=== PATIENT | male | born 1965 | race Caucasian/White ===

== ENCOUNTER 2016-12-18 13:55 | Outpatient (CLI) | payer OTHER | END 2016-12-18 13:56 | disposition home or self-care (01) | DX: R30.0 Dysuria (principal) ==

== ENCOUNTER 2017-12-06 07:41 | Outpatient (CLI) | payer OTHER ==
[2017-12-06 10:43] LABS: BASOPHILS % (AUTO) 0.4 %; EOSINOPHILS # (AUTO) 0.3 10^3/uL (0.0-0.7); EOSINOPHILS % (AUTO) 4.2 %; HGB - HEMOGLOBIN 15.9 g/dL (14.0-18.0); LYMPHOCYTES # (AUTO) 2.1 10^3/uL (1.5-3.5); MEAN CORPUSCULAR HEMOGLOBIN 29.4 pg (27.0-31.0); MEAN CORPUSCULAR HGB CONC 33.6 g/dL (32.0-36.0); MEAN CORPUSCULAR VOLUME 87.5 fL (80.0-94.0); MEAN PLATELET VOLUME 8.1 fL (7.4-11.4); MONOCYTES # (AUTO) 0.5 10^3/uL (0.0-1.0); MONOCYTES % (AUTO) 8.1 %; NEUTROPHILS # (AUTO) 3.2 10^3/uL (1.5-6.6); NEUTROPHILS % (AUTO) 53.3 %; PLT - PLATELET COUNT 213 10^3/uL (130-450); RED CELL DISTRIBUTION WIDTH 13.5 % (12.0-15.0)
[2017-12-06 10:54] LABS: ALBUMIN 4.2 g/dL (3.2-5.5); ALBUMIN/GLOBULIN RATIO 1.2 (1.0-2.2); ALKALINE PHOSPHATASE 86 IU/L (42-121); ALT ALANINE AMINOTRANSFERASE 32 IU/L (10-60); AST ASPARTATE AMINOTRANSFERASE 33 IU/L (10-42); BILIRUBIN,TOTAL 0.5 mg/dL (0.2-1.0); BUN - BLOOD UREA NITROGEN 14 mg/dL (6-20); CALCIUM 9.2 mg/dL (8.5-10.3); CARBON DIOXIDE - CO2 26 mmol/L (21-32); CHLORIDE 101 mmol/L (101-111); CREATININE 0.6 mg/dL (0.6-1.2); GFR - MDRD 143 (>89); GLUCOSE 115 mg/dL (70-100); SODIUM 137 mmol/L (135-145); TOTAL PROTEIN 7.7 g/dL (6.7-8.2)
[2017-12-07 13:12] LABS: HIV AG/AB 4TH GEN NON-REACTIVE (NON-REACTIVE)
[2017-12-07 15:27] LABS: HEPATITIS C ANTIBODY NON-REACTIVE (NON-REACTIVE)
== END 2017-12-06 07:42 | disposition home or self-care (01) ==
LOC: LAB.F 07:41
PROVIDERS: ATTEND Nurse Practitioner Family
DX: G44.89 Other headache syndrome (principal); Z72.51 High risk heterosexual behavior
CPT/HCPCS: 36415; 80053; 81599; 84443; 85025; 85651; 86803; 87389; 87491; 87591

== ENCOUNTER 2019-02-04 11:24 | Emergency (ER) | payer OTHER ==
[2019-02-04 11:47] LABS: BASOPHILS # (AUTO) 0.1 10^3/uL (0.0-0.1); BASOPHILS % (AUTO) 0.6 %; EOSINOPHILS # (AUTO) 0.1 10^3/uL (0.0-0.7); EOSINOPHILS % (AUTO) 0.7 %; LYMPHOCYTES # (AUTO) 1.6 10^3/uL (1.5-3.5); LYMPHOCYTES % (AUTO) 16.7 %; MEAN CORPUSCULAR HEMOGLOBIN 29.8 pg (27.0-31.0); MEAN CORPUSCULAR HGB CONC 34.2 g/dL (32.0-36.0); MEAN CORPUSCULAR VOLUME 87.3 fL (80.0-94.0); MEAN PLATELET VOLUME 6.9 fL (7.4-11.4); MONOCYTES # (AUTO) 0.6 10^3/uL (0.0-1.0); NEUTROPHILS # (AUTO) 7.1 10^3/uL (1.5-6.6); PLT - PLATELET COUNT 277 10^3/uL (130-450); RED BLOOD COUNT 5.36 10^6/uL (4.70-6.10); RED CELL DISTRIBUTION WIDTH 13.2 % (12.0-15.0); WHITE BLOOD COUNT 9.4 x10^3/uL (4.8-10.8)
--- NOTE | 2019-02-04 11:54 | ED Physician Documentation ---
PD HPI CHEST PAIN - Stated complaint Stated Complaint: CHEST PAIN - Chief complaint Chief Complaint: Cardiac - History obtained from History obtained from: Patient - History of Present Illness Timing - onset: How many days ago (2) Timing - onset during: Rest Timing - duration: Days (2) Timing - details: Gradual onset Pain level max: 8 Pain level now: 6 Quality: Sharp, Pain Location: Left chest Radiation: No: Jaw, Neck, Back, Abdominal, Left upper extremity, Right upper extremity Improved by: Other (nothing) Worsened by: Inspiration, Palpation Associated symptoms: Cough (states has a chronic cough, unchanged, was recently ill.). No: Shortness of air, Diaphoresis, Nausea, Vomiting, Feeling faint / dizzy, General Weakness, Palpitations Recently seen: Not recently seen Review of Systems Ten Systems: 10 systems reviewed and negative Constitutional: denies: Fever, Chills GI: denies: Vomiting, Diarrhea Skin: denies: Rash Musculoskeletal: denies: Neck pain, Back pain Neurologic: denies: Headache PD PAST MEDICAL HISTORY - Past Medical History Past Medical History: Yes Cardiovascular: None Respiratory: Other Endocrine/Autoimmune:  GI: Other : None HEENT: None Psych:  Musculoskeletal: None - Past Surgical History Past Surgical History: Yes Ortho: Knee replacement - Present Medications Home Medications: Ambulatory Orders Medication Instructions Recorded Confirmed Ibuprofen [Motrin] 800 mg PO Q8H PRN #30 tablet 02/04/19 - Allergies Allergies/Adverse Reactions: Allergies Allergy/AdvReac Type Severity Reaction Status Date / Time Opioids - Morphine Analogues AdvReac Itching Verified 02/04/19 11:40 - Social History Does the pt smoke?: Yes PD ED PE NORMAL - Vitals Vital signs reviewed: Yes - General General: Alert and oriented X 3, No acute distress - HEENT HEENT: Moist mucous membranes - Neck Neck: Supple, no meningeal sign - Cardiac Cardiac: RRR, No murmur, Strong equal pulses - Respiratory Respiratory: No respiratory distress, Clear bilaterally - Abdomen Abdomen: Soft, Non tender, Non distended - Derm Derm: Warm and dry - Extremities Extremities: No edema, No calf tenderness / cord - Neuro Neuro: Alert and oriented X 3 - Psych Psych: Normal mood, Normal affect Results - Vitals Vitals: Vital Signs - 24 hr 02/04/19 02/04/19 02/04/19 11:36 11:57 12:06 Temperature 37.8 C H Heart Rate 69 67 69 Respiratory 18 14 15 Rate Blood Pressure 140/98 H 134/94 H 125/82 H O2 Saturation 97 98 95 02/04/19 02/04/19 02/04/19 12:28 13:00 13:34 Temperature Heart Rate 68 65 60 Respiratory 13 16 16 Rate Blood Pressure 112/66 121/84 H 129/95 H O2 Saturation 97 98 97 02/04/19 02/04/19 13:59 14:12 Temperature 37.0 C Heart Rate 69 67 Respiratory 16 16 Rate Blood Pressure 119/78 123/85 H O2 Saturation 97 98 Oxygen O2 Source Room air - EKG (time done) 1132 Rate: Rate (enter#) (74) Rhythm: NSR [place]: Anterior hemiblock (LAFB) Intervals: RBBB (incomplete) Ischemia: Other (J point elevation, tall t waves. ) Compare to prior EKG: Old EKG unavailable - Labs Labs: Laboratory Tests 02/04/19 02/04/19 02/04/19 11:40 11:40 11:40 WBC 9.4 RBC 5.36 Hgb 16.0 Hct 46.8 MCV 87.3 MCH 29.8 MCHC 34.2 RDW 13.2 Plt Count 277 MPV 6.9 L Neut # (Auto) 7.1 H Lymph # (Auto) 1.6 [place] # (Auto) 0.6 Eos # (Auto) 0.1 Baso # (Auto) 0.1 Absolute Nucleated RBC 0.01 Nucleated RBC % 0.1 Sodium 137 Potassium 4.4 Chloride 100 L Carbon Dioxide 27 Anion Gap 10.0 BUN 16 Creatinine 0.7 Estimated GFR (MDRD) 119 Glucose 100 Calcium 9.1 Total Bilirubin 0.6 AST 20 ALT 16 Alkaline Phosphatase 94 Troponin I < 0.04 Total Protein 8.2 Albumin 4.0 Globulin 4.2 Albumin/Globulin Ratio 1.0 Lipase 33 02/04/19 13:27 WBC RBC Hgb Hct MCV MCH MCHC RDW Plt Count MPV Neut # (Auto) Lymph # (Auto) [place] # (Auto) Eos # (Auto) Baso # (Auto) Absolute Nucleated RBC Nucleated RBC % Sodium Potassium Chloride Carbon Dioxide Anion Gap BUN Creatinine Estimated GFR (MDRD) Glucose Calcium Total Bilirubin AST ALT Alkaline Phosphatase Troponin I < 0.04 Total Protein Albumin Globulin Albumin/Globulin Ratio Lipase - Rads (name of study) cxr Radiology: Prelim report reviewed, EMP read contemporaneously, See rad report (no acute disease) PD MEDICAL DECISION MAKING - ED course Complexity details: reviewed results, re-evaluated patient, considered differential, d/w patient ED course: 53-year-old male with left-sided pleuritic chest pain following a viral upper respiratory infection a few days ago. This been ongoing for the past 2 days. No acute ischemic changes on EKG. Pain improved with Toradol. Negative troponin x2. Appears to be consistent with pleurisy. No evidence of pulmonary embolus, acute coronary syndrome. We will continue supportive care and follow- up with his doctor. Patient counseled regarding signs and symptoms for which I believe and urgent re-evaluation would be necessary. Patient with good understanding of and agreement to plan and is comfortable going home at this time This document was made in part using voice recognition software. While efforts are made to proofread this document, sound alike and grammatical errors may occur. Patient took aspirin prior to arrival Departure - Departure Disposition: 01 Home, Self Care Clinical Impression: Pleurisy Chest pain Qualifiers: Chest pain type: unspecified Qualified Code(s): R07.9 - Chest pain, unspecified Condition: Good Instructions: ED Chest Pain Atypical Unkn Cause, ED Chest Pain Pleurisy Follow-Up: Roya Varela ARNP [Primary Care Provider] - Within 1 week Prescriptions: Ibuprofen [Motrin] 800 mg PO Q8H PRN #30 tablet PRN Reason: PAIN &/OR FEVER Comments: Return if you worsen. Your heart testing is normal today. You should follow-up with your doctor for a cardiac stress test. you appear to have inflammation in the lining between your lungs and your chest wall. This should improve over the next week. Discharge Date/Time: 02/04/19 14:13
[2019-02-04] MEDS: NITROGLYCERIN SL 0.4 MG TABLET SL STA ×2 (11:56→12:06)
[2019-02-04 12:01] LABS: BILIRUBIN,TOTAL 0.6 mg/dL (0.2-1.0); CALCIUM 9.1 mg/dL (8.5-10.3); CREATININE 0.7 mg/dL (0.6-1.2); TOTAL PROTEIN 8.2 g/dL (6.7-8.2)
[2019-02-04] MEDS ORDERED: KETOROLAC 30 MG/ML VIAL IVP STA (12:14)
--- NOTE | 2019-02-04 12:30 | XRAY Report ---
Reason: Chest Pain Procedure Date: 02/04/2019 Accession Number: [id number] / [id number] Procedure: XR - Chest 1 View X-Ray CPT Code: 09079 FULL RESULT: EXAM: CHEST RADIOGRAPHY EXAM DATE: 02/04/2019 11:47 AM. CLINICAL HISTORY: Chest Pain. COMPARISON: None. TECHNIQUE: 1 view. FINDINGS: Lungs/Pleura: No focal opacities evident. No pleural effusion. No pneumothorax. Normal volumes. Bronchial wall thickening noted. Mediastinum: Within exam limitations, the cardiomediastinal contour is normal. Other: None. IMPRESSION: 1. No acute pulmonary process. RADIA
[2019-02-04 14:13] VITALS: BP 123/85
== END 2019-02-04 14:13 | disposition home or self-care (01) ==
LOC: ED 11:24
DX: R09.1 Pleurisy (principal); R07.9 Chest pain, unspecified; I45.2 Bifascicular block; Z96.659 Presence of unspecified artificial knee joint
CPT/HCPCS: 36415; 71045; 80053; 83690; 84484; 85025; 93005; 96374; 99283; 99284; A9270

== ENCOUNTER 2019-11-09 18:43 | Day surgery (SDC) | payer OTHER ==
[~2019-11-09 18:43] MED LIST: ACETAMINOPHEN 325 MG TABLET PO PRN; IBUPROFEN 600 MG TABLET PO PRN; ONDANSETRON 4 MG/2 ML VIAL IVP PRN; oxyCODONE 5 MG TABLET PO PRN
[2019-11-09] MEDS ORDERED: diphenhydrAMINE INJ 50 MG/ML VIAL IVP STA (19:06)
[2019-11-09] MEDS ORDERED: HYDROmorphone 1 MG/ML CARPUJECT IVP STA ×2 (19:06→19:57)
--- NOTE | 2019-11-09 19:09 | ED Physician Documentation ---
PD HPI ABD PAIN - Stated complaint Stated Complaint: R ABD PAIN - Chief complaint Chief Complaint: Abd Pain - History obtained from History obtained from: Patient - History of Present Illness Timing - onset: How many hours ago (2) Timing - duration: Hours (2) Timing - details: Abrupt onset Pain level max: 9 Pain level now: 9 Quality: Aching, Pain Location: Other (R inguinal hernia, pain, unable to reduce) Radiation: No: Chest, , Lower back, Left flank, Left shoulder, Right flank, Right shoulder, Upper back Improved by: Laying still Worsened by: Palpation Associated symptoms: No: Fever, Nausea, Vomiting, Hematemesis, Diarrhea, Constipation, Melena, Hematochezia, Dysuria Recently seen: Not recently seen Review of Systems Ten Systems: 10 systems reviewed and negative Constitutional: denies: Fever, Chills Ears: denies: Ear pain Nose: denies: Rhinorrhea / runny nose, Congestion Throat: denies: Sore throat Cardiac: denies: Chest pain / pressure Respiratory: denies: Cough GI: denies: Vomiting, Diarrhea Skin: denies: Rash Musculoskeletal: denies: Neck pain, Back pain Neurologic: denies: Headache PD PAST MEDICAL HISTORY - Past Medical History Cardiovascular: None Respiratory: Other Endocrine/Autoimmune:  GI: Other : None HEENT: None Psych:  Musculoskeletal: None - Past Surgical History Past Surgical History: Yes Ortho: Knee replacement - Present Medications Home Medications: Ambulatory Orders Medication Instructions Recorded Confirmed Ibuprofen [Motrin] 800 mg PO Q8H PRN #30 tablet 02/04/19 - Allergies Allergies/Adverse Reactions: Allergies Allergy/AdvReac Type Severity Reaction Status Date / Time Opioids - Morphine Analogues AdvReac Itching Verified 11/09/19 18:53 - Social History Does the pt smoke?: Yes PD ED PE NORMAL - Vitals Vital signs reviewed: Yes - General General: Alert and oriented X 3, No acute distress, Well developed/nourished - HEENT HEENT: Moist mucous membranes - Neck Neck: Supple, no meningeal sign - Cardiac Cardiac: RRR, Strong equal pulses - Respiratory Respiratory: No respiratory distress, Clear bilaterally - Abdomen Abdomen: Soft, Non tender, Non distended - Derm Derm: Warm and dry - Extremities Extremities: Other (incarcerated R inguinal/femoral hernia.) - Neuro Neuro: Alert and oriented X 3 - Psych Psych: Normal mood, Normal affect Results - Vitals Vitals: Vital Signs - 24 hr 11/09/19 11/09/19 18:53 20:56 Temperature 36.9 C 36.8 C Heart Rate 62 63 Respiratory 24 18 Rate Blood Pressure 143/119 H 132/87 H O2 Saturation 97 96 Oxygen O2 Source Room air - Labs Labs: Laboratory Tests 11/09/19 11/09/19 11/09/19 19:16 19:16 19:50 WBC 7.9 RBC 4.84 Hgb 14.6 Hct 43.2 MCV 89.3 MCH 30.2 MCHC 33.8 RDW 12.5 Plt Count 234 MPV 9.3 Neut # (Auto) 5.0 Lymph # (Auto) 2.1 [place] # (Auto) 0.6 Eos # (Auto) 0.2 Baso # (Auto) 0.0 Absolute Nucleated RBC 0.00 Nucleated RBC % 0.0 Sodium 139 Potassium 3.9 Chloride 104 Carbon Dioxide 25 Anion Gap 10.0 BUN 12 Creatinine 0.6 Estimated GFR (MDRD) 141 Glucose 95 Lactic Acid 0.9 Calcium 8.9 Total Bilirubin 1.0 AST 19 ALT 17 Alkaline Phosphatase 69 Total Protein 7.4 Albumin 4.3 Globulin 3.1 Albumin/Globulin Ratio 1.4 Lipase 27 PD MEDICAL DECISION MAKING - ED course Complexity details: reviewed results, re-evaluated patient, considered differential, d/w patient, d/w system consultant ED course: Incarcerated right inguinal hernia. Unable to reduce in the emergency department. Discussed the case with Dr. Das, general surgery on-call who will come and evaluate the patient. Dr. Das came to the emergency department, unable to reduce the hernia as well. Therefore he will take him to surgery. This document was made in part using voice recognition software. While efforts are made to proofread this document, sound alike and grammatical errors may occur. Departure - Departure Disposition: ED Transfer to [facility] Clinical Impression: Incarcerated right inguinal hernia Condition: Stable Discharge Date/Time: 11/09/19 21:46
[2019-11-09 19:34] LABS: BASOPHILS % (AUTO) 0.5 %; EOSINOPHILS # (AUTO) 0.2 10^3/uL (0.0-0.7); EOSINOPHILS % (AUTO) 2.3 %; HGB - HEMOGLOBIN 14.6 g/dL (14.0-18.0); LYMPHOCYTES # (AUTO) 2.1 10^3/uL (1.5-3.5); LYMPHOCYTES % (AUTO) 26.1 %; MEAN CORPUSCULAR HEMOGLOBIN 30.2 pg (27.0-31.0); MEAN CORPUSCULAR HGB CONC 33.8 g/dL (32.0-36.0); MEAN CORPUSCULAR VOLUME 89.3 fL (80.0-94.0); MEAN PLATELET VOLUME 9.3 fL (7.4-11.4); MONOCYTES # (AUTO) 0.6 10^3/uL (0.0-1.0); MONOCYTES % (AUTO) 8.1 %; NEUTROPHILS % (AUTO) 62.6 %; PLT - PLATELET COUNT 234 10^3/uL (130-450); RED BLOOD COUNT 4.84 10^6/uL (4.70-6.10); RED CELL DISTRIBUTION WIDTH 12.5 % (12.0-15.0); WHITE BLOOD COUNT 7.9 x10^3/uL (4.8-10.8)
[2019-11-09] MEDS ORDERED: LACTATED RINGERS 1,000 ML IV STA (19:40)
[2019-11-09 19:41] LABS: ALBUMIN 4.3 g/dL (3.2-5.5); ALBUMIN/GLOBULIN RATIO 1.4 (1.0-2.2); CALCIUM 8.9 mg/dL (8.5-10.3); CREATININE 0.6 mg/dL (0.6-1.2); TOTAL PROTEIN 7.4 g/dL (6.7-8.2)
--- NOTE | 2019-11-09 20:42 | CONSULTATION NOTE ---
Referring Provider Name of Referring Provider:: Dr. King Consult Date: 11/09/19 Chief Complaint - Chief Complaint Chief Complaint: right groin pain History of Present Illness - Admitted From Admitted From:: ER - History Obtained From Records Reviewed: yes History obtained from: pt Exam Limitations: none - History of Present Illness HPI Comment/Other: 54 yo male with sudden onset of a painful groin bulge at approx 1730 hours today. Hx similar sx intermittently over the past year, always reducible with pressure and recumbency, but unable to do so today so he presented to the ER. Has been diagnosed with a hernia by his PCP but has never gotten around to see a surgeon to have it repaired. 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 No hx chronic pulmonary, urinary or GI sx. +FH hernia in his father. No N/V or abdominal pain. Last meal at 1230 hrs today. In the ER the hernia was unable to be reduced and surgical consultation was requested. No sx on the left. History - Past Medical History Cardiovascular: reports: None Respiratory: reports: None, Other Neuro: reports: None Endocrine/Autoimmune: reports: None GI: reports: None, Other : reports: None HEENT: reports: None Psych: Musculoskeletal: reports: None Derm: reports: None MRSA Hx?: No - Past Surgical History General: reports: Other (hemorrhoid surgery) Ortho: reports: Knee replacement (right) - Family & Social History Family History Comment/Other: +Hernia in father Living arrangement: At home - Substance History Use: Uses substance without health or social issues: Tobacco Tobacco Details: Cigarettes - POLST Patient has POLST: No Meds/Allgy - Home Medications Home Medications: Ambulatory Orders Medication Instructions Recorded Confirmed Ibuprofen [Motrin] 800 mg PO Q8H PRN #30 tablet 02/04/19 - Allergies Allergies/Adverse Reactions: Allergies Allergy/AdvReac Type Severity Reaction Status Date / Time Opioids - Morphine Analogues AdvReac Itching Verified 11/09/19 18:53 Review of Systems - Respiratory Respiratory: reports: Cough - Gastrointestinal Gastrointestinal: reports: Abdominal pain (right groin pain, severe, constant). denies: Constipation, Diarrhea, Change in bowel habits, Rectal bleeding, Nausea, Vomiting - Genitourinary Genitourinary: denies: Dysuria - Hematologic/Lymphatic Hematologic/Lymphatic: denies: Blood clots, Bleeding tendencies - All Other Systems All Other Systems: reports: Reviewed and negative (or covered in HPI/PMH) Exam - Vital Signs Reviewed Vital Signs: Yes Vital Signs: Vital Signs x48h Temp Pulse Resp BP Pulse Ox 11/09/19 18:53 36.9 C 62 24 143/119 H 97 - Physical Exam General Appearance: positive: Alert, Moderate distress (c/o right groin pain) Eyes Bilateral: positive: Normal inspection, No scleral icterus ENT: positive: ENT inspection nml, Pharynx nml, No signs of dehydration Neck: positive: Nml inspection, No JVD, Trachea midline. negative: Lymphadenopathy (R), Lymphadenopathy (L) Respiratory: positive: Chest non-tender, No respiratory distress, Breath sounds nml. negative: Wheezes, Rales, Rhonchi Cardiovascular: positive: Regular rate & rhythm, No murmur, No gallop Abdomen: positive: Non-tender, No organomegaly, No distention, Other (right groin, below the inguinal ligament, a 2.5 cm diameter round, soft, tender slightly mobile, irreducible mass). negative: Hepatomegaly, Splenomegaly, Mass Skin: positive: Color nml, No rash, Warm, Dry. negative: Cyanosis Extremities: positive: Non-tender, Full ROM, Nml appearance, No pedal edema. negative: Calf tenderness Neurologic/Psychiatric: positive: Oriented x3 Conclusion and Plan - Lab Results Laboratory Results 11/09/19 19:50: Lactic Acid 0.9 11/09/19 19:16: Sodium 139, Potassium 3.9, Chloride 104, Carbon Dioxide 25, Anion Gap 10.0, BUN 12, Creatinine 0.6, Estimated GFR (MDRD) 141, Glucose 95, Calcium 8.9, Total Bilirubin 1.0, AST 19, ALT 17, Alkaline Phosphatase 69, Total Protein 7.4, Albumin 4.3, Globulin 3.1, Albumin/Globulin Ratio 1.4, Lipase 27 11/09/19 19:16: WBC 7.9, RBC 4.84, Hgb 14.6, Hct 43.2, MCV 89.3, MCH 30.2, MCHC 33.8, RDW 12.5, Plt Count 234, MPV 9.3, Neut # (Auto) 5.0, Lymph # (Auto) 2.1, [place] # (Auto) 0.6, Eos # (Auto) 0.2, Baso # (Auto) 0.0, Absolute Nucleated RBC 0.00, Nucleated RBC % 0.0 - Diagnosis Diagnosis: Painful right groin mass, acute onset; likely incarcerated hernia, likely femoral; doubt neoplasm or lymphadenopathy/lymphadenitis; doubt bowel involvement, but possible. Abd is benign. - Plan Plan: To the OR for open right groin exploration and repair of the hernia with probable mesh implantation. PAR conf was held and alternatives of observation and risks of bleeding, infection, recurrence, nerve injury were discussed and consent obtained. The procedure will be scheduled for later this evening as soon as it can be arranged. Thanks,
[2019-11-09] MEDS ORDERED: ceFAZolin 1 GM VIAL ONE (21:06)
[2019-11-09] MEDS ORDERED: LIDOCAINE 1%-EPI 1:100000 20 ML MDV ONE (21:06)
[2019-11-09] MEDS ORDERED: BUPIVACAINE 0.5% PF 30 ML VIAL ONE (21:06)
[2019-11-09] MEDS ORDERED: ceFAZolin 2 GM in SODIUM CHLORIDE 0.9% 100ML 100 ML IV STA (21:11)
--- NOTE | 2019-11-09 21:18 | ANESTHESIA ---
Pre-Anesthesia VS, & Labs - Diagnosis Diagnosis Painful right groin mass, acute onset; likely incarcerated hernia, likely femoral; doubt neoplasm or lymphadenopathy/lymphadenitis; doubt bowel involvement, but possible. Abd is benign. - Procedure right inguinal hernia repair, incarcerated Vital Signs: Temp Pulse Resp BP Pulse Ox 36.9 C 62 24 143/119 H 97 11/09/19 18:53 11/09/19 18:53 11/09/19 18:53 11/09/19 18:53 11/09/19 18:53 Height 5 ft 7 in Weight (kg) 58.967 kg Body Mass Index 20.3 - NPO >8 hours - Lab Results Current Lab Results: Laboratory Tests 11/09/19 19:50: Lactic Acid 0.9 11/09/19 19:16: Sodium 139, Potassium 3.9, Chloride 104, Carbon Dioxide 25, Anio n Gap 10.0, BUN 12, Creatinine 0.6, Estimated GFR (MDRD) 141, Glucose 95, Calcium 8.9, Total Bilirubin 1.0, AST 19, ALT 17, Alkaline Phosphatase 69, Total Protein 7.4, Albumin 4.3, Globulin 3.1, Albumin/Globulin Ratio 1.4, Lipase 27 11/09/19 19:16: WBC 7.9, RBC 4.84, Hgb 14.6, Hct 43.2, MCV 89.3, MCH 30.2, MCHC 33.8, RDW 12.5, Plt Count 234, MPV 9.3, Neut # (Auto) 5.0, Lymph # (Auto) 2.1, [place] # (Auto) 0.6, Eos # (Auto) 0.2, Baso # (Auto) 0.0, Absolute Nucleated RBC 0.00, Nucleated RBC % 0.0 Fish Bones: 11/09/19 19:16 11/09/19 19:16 Home Medications and Allergies Active Medications Lactated Ringer's (Lr) 1,000 mls @ 150 mls/hr IV .Q6H40M STA Stop: 11/10/19 02:19 Last Admin: 11/09/19 20:11 Dose: 150 mls/hr Cefazolin Sodium 2 gm/ Sodium (Chloride) 100 mls @ 200 mls/hr IV ONCE STA Stop: 11/09/19 21:40 Allergies/Adverse Reactions: Allergies Allergy/AdvReac Type Severity Reaction Status Date / Time Opioids - Morphine Analogues AdvReac Itching Verified 11/09/19 18:53 Anes History & Medical History - Anesthetic History Anesthesia Complications: reports: No previous complications - Medical History Cardiovascular: reports: None Pulmonary: reports: None, Other Gastrointestinal: reports: None, Other Urinary: reports: None Neuro: reports: None Musculoskeletal: reports: None Endocrine/Autoimmune: reports: None Blood Disorders: reports: None Skin: reports: None Smoking Status: Current every day smoker - Surgical History General: Other (hemorrhoid surgery) Orthopedic: Knee replacement (right patella reconstruction) Exam General: Alert Dental: WNL, Other (permenant bridge, upper) Mouth Opening: Greater than 4 Fingerbreadths Neck Mobility: Normal Mallampati classification: II Thyromental Distance: greater than 6 cm Respiratory: Lungs clear Cardiovascular: Regular rate, Normal S1, Normal S2 Mental/Cognitive Status: Alert/Oriented X3 Plan Anesthesia Type: General Consent for Procedure(s) Verified and Reviewed: Yes Code Status: Attempt Resuscitation ASA classification: 2-Mild systemic disease Is this case an emergency?: Yes
[2019-11-09] MEDS ORDERED: DEXAMETHASONE 4 MG/ML VIAL IVP ONE (21:43)
[2019-11-09] MEDS ORDERED: PROPOFOL 200 MG/20 ML VIAL IVP ONE (21:43)
[2019-11-09] MEDS ORDERED: ONDANSETRON 4 MG/2 ML VIAL IVP ONE (21:43)
[2019-11-09] MEDS ORDERED: MIDAZOLAM 2 MG/2 ML VIAL IVP ONE (21:43)
[2019-11-09] MEDS ORDERED: ACETAMINOPHEN 1,000 MG/100 ML 100 ML IV ONE (21:43)
[2019-11-09] MEDS ORDERED: LACTATED RINGERS 1,000 ML IV ONE ×2 (21:43→23:48)
[2019-11-09] MEDS ORDERED: KETOROLAC 30 MG/ML VIAL IVP ONE (21:43)
[2019-11-09] MEDS ORDERED: LIDOCAINE-MPF 2% 5 ML VIAL IM ONE (21:43)
[2019-11-09] MEDS ORDERED: LACTATED RINGERS 1,000 ML IV SCH ×2 (23:00→23:45)
[2019-11-09] MEDS ORDERED: ONDANSETRON 4 MG/2 ML VIAL IVP PRN (23:32)
[2019-11-09] MEDS ORDERED: IBUPROFEN 600 MG TABLET PO PRN (23:32)
[2019-11-09] MEDS ORDERED: ACETAMINOPHEN 325 MG TABLET PO PRN (23:32)
[2019-11-09] MEDS ORDERED: oxyCODONE 5 MG TABLET PO PRN (23:32)
--- NOTE | 2019-11-10 04:23 | OPERATIVE REPORT ---
DATE OF SERVICE: 11/09/2019 Physician: John Das MD PREOPERATIVE DIAGNOSIS: Incarcerated right femoral hernia. POSTOPERATIVE DIAGNOSIS: Incarcerated right femoral hernia. PROCEDURE PERFORMED: Open repair of incarcerated right femoral hernia with Bard soft tissue patch. ANESTHESIA: Local plus general laryngeal mask anesthesia by Cheryl Smith CRNA. SURGEON: John Das MD ESTIMATED BLOOD LOSS: 5 mL. COMPLICATIONS: None. FINDINGS: A loop of small bowel and omentum were seen incarcerated with the femoral hernia sac. The loop of small bowel appeared to be ischemic but following reduction, quickly pinked up and was clear ly viable. A Reggie type of reconstruction with mesh was used. TECHNIQUE: After informed consent, the patient was taken to the operating room where he was placed u nder general laryngeal mask anesthesia. Preoperative preparation included the application of sequent ial calf compression boots and administration of 2 grams cefazolin intravenously within an hour of th e incision. His abdomen had been clipped in the Emergency Room and was prepared with ChloraPrep solu tion, following which a right groin block was instituted using a 50:50 combination of 1% lidocaine pl ain and 0.5% Marcaine with epinephrine. A total of 20 mL of the mixture was used. The right groin w as then re-prepared with ChloraPrep solution and draped in the usual sterile fashion. A transverse i ncision was made in the skin lines of the right groin, beginning above the pubic tubercle and extendi ng approximately 5 cm in length. Hemostasis achieved with electrocautery and 2-0 Vicryl ties. Incis ion was carried down through subcutaneous tissues until the external oblique aponeurosis was identifi ed. It was incised along the lines of the fibers in such a manner as to open the external ring and e xpose the internal ring. The ilioinguinal nerve was divided to avoid entrapment. The spermatic cord was mobilized and encircled with a Ada drain. The spermatic cord was dissected and a search for an indirect hernia sac was made and none was identified. There was no evidence of direct hernia. T he hernia was clearly femoral in nature. The inguinal floor was then divided adjacent to the inguina l ligament exposing the preperitoneal space and the neck of the hernia sac. The hernia sac was opened and the omentum present within the hernia sac was reduced but the loop of small bowel that was prese nt could not be; the inguinal ligament was therefore divided to expose the neck of the hernia sac. T he hernia sac was then fully mobilized and incised with findings noted above. After the neck of the hernia sac had completely been freed, the loop of small bowel was able to be reduced and seen to be v iable. It was then replaced in the peritoneal cavity. Omental adhesions to the hernia sac were lyse d and the omentum was reduced fully into the peritoneal cavity. The hernia sac was excised and disca rded. The resulting peritoneal resulting peritoneal defect was reapproximated with continuous 3-0 si lk sutures, at which point Stan's ligament was exposed in the retroperitoneal space. The transvers danay fascia was identified and a relaxing incision was made in the anterior rectus sheath deep to the external oblique aponeurosis using electrocautery and making hockey-stick shaped incision. This all owed the transversalis fascia to be secured to Stan's ligament with interrupted 2-0 Ethibond suture s without tension. The repair was transitioned to the iliopubic tract and the base of the inguinal l igament laterally. The inguinal ligament was then reconstructed with 2 horizontal mattress sutures o f 2-0 Ethibond, following which after hemostasis was assured, the wound was irrigated with antibiotic solution containing 1 gram of cefazolin per liter, following which a Bard precut slotted inguinal he rnia patch, medium weight, was soaked in antibiotic solution and trimmed to appropriate size, placed over the inguinal floor and secured in place circumferentially with 3-0 Prolene suture, securing it t o the shelving edge of Poupart's ligament inferiorly and to the internal oblique aponeurosis superola terally and to the lateral border of the rectus sheath medially and covering the relaxing incision. Care was taken to avoid excessive tightening of the patch around the cord at the level of the interna l ring. After hemostasis was again assured, the wound was irrigated with antibiotic solution, follow ing which wound closure was accomplished in layers using continuous 2-0 Vicryl, reapproximating the e xternal oblique aponeurosis overlying the cord, followed by 3-0 Vicryl for Evette's fascia and a 4-0 Monocryl subcuticular skin closure, followed by Dermabond. Anesthesia was terminated and patient was transferred to the recovery room in satisfactory condition. Sponge and needle counts were correct x 2 and no drains were used. TD: 11/09/2019 23:47
[2019-11-10 08:26] VITALS: BP 114/72
--- NOTE | 2019-11-10 09:38 | PROVIDER PROGRESS NOTE ---
Subjective - General Procedure Date: 11/09/19 Post Op Days: 1 Procedure Performed: Open repair of incarcerated right femoral hernia with mesh - Review of Systems Wound/Incisions: positive: Healing well, No drainage General: positive: No symptoms Gastrointestinal: positive: No symptoms Genitourinary: positive: No symptoms Musculoskeletal: positive: No symptoms - Other Other Information/Narrative: feels well; incisional pain manageable; no N/V; ambulating and voiding well. Objective - Patient Data Reviewed Vital Signs: Yes Vital Signs: Vital Signs x48h Temp Pulse Resp BP Pulse Ox 11/10/19 08:25 36.7 C 51 L 16 114/72 98 11/10/19 05:15 36.5 C 59 L 16 98/63 99 11/10/19 02:29 52 L 16 102/59 L 96 11/10/19 01:40 49 L 16 108/69 95 Weight: Weight 11/08/19 11/09/19 11/10/19 23:59 23:59 23:59 Weight (kg) 58.967 kg Intake & Output: Intake and Output Totals x24h 11/08/19 11/09/19 11/10/19 23:59 23:59 23:59 Intake Total 1100.0 Output Total 250 Balance 850.0 - Lab Results Lab Results: 11/09/19 19:16 11/09/19 19:16 Other Lab Results: Lab Results x24hrs 11/09/19 11/09/19 11/09/19 Range/Units 19:50 19:16 19:16 WBC 7.9 (4.8-10.8) x10^3/uL RBC 4.84 (4.70-6.10) 10^6/uL Hgb 14.6 (14.0-18.0) g/dL Hct 43.2 (42.0-52.0) % MCV 89.3 (80.0-94.0) fL MCH 30.2 (27.0-31.0) pg MCHC 33.8 (32.0-36.0) g/dL RDW 12.5 (12.0-15.0) % Plt Count 234 (130-450) 10^3/uL MPV 9.3 (7.4-11.4) fL Neut # (Auto) 5.0 (1.5-6.6) 10^3/uL Lymph # (Auto) 2.1 (1.5-3.5) 10^3/uL [place] # (Auto) 0.6 (0.0-1.0) 10^3/uL Eos # (Auto) 0.2 (0.0-0.7) 10^3/uL Baso # (Auto) 0.0 (0.0-0.1) 10^3/uL Absolute Nucleated RBC 0.00 x10^3/uL Nucleated RBC % 0.0 /100WBC Sodium 139 (135-145) mmol/L Potassium 3.9 (3.5-5.0) mmol/L Chloride 104 (101-111) mmol/L Carbon Dioxide 25 (21-32) mmol/L Anion Gap 10.0 (6-13) BUN 12 (6-20) mg/dL Creatinine 0.6 (0.6-1.2) mg/dL Estimated GFR (MDRD) 141 (>89) Glucose 95 (70-100) mg/dL Lactic Acid 0.9 (0.5-2.2) mmol/L Calcium 8.9 (8.5-10.3) mg/dL Total Bilirubin 1.0 (0.2-1.0) mg/dL AST 19 (10-42) IU/L ALT 17 (10-60) IU/L Alkaline Phosphatase 69 (42-121) IU/L Total Protein 7.4 (6.7-8.2) g/dL Albumin 4.3 (3.2-5.5) g/dL Globulin 3.1 (2.1-4.2) g/dL Albumin/Globulin Ratio 1.4 (1.0-2.2) Lipase 27 (22-51) U/L - Physical Exam Wound/Incisions: positive: Healing well, No drainage General Appearance: positive: Alert, Mild distress (mild incisional discomfort) Eyes Bilateral: positive: Normal inspection Abdomen: positive: Non-tender, No organomegaly, No distention Extremities: positive: Non-tender, Full ROM, No pedal edema. negative: Calf tenderness Neurologic/Psychiatric: positive: Oriented x3 Impression/Plan - Problem List Problem List: Doing well PO day 1. Plan: home today; instructions reviewed, RTO 1-2 weeks.
== END 2019-11-10 09:20 | disposition home or self-care (01) ==
LOC: ED 18:43 → SDS 20:30 → MS2 11-10 00:23 → SDS 11-10 09:20
PROVIDERS: ATTEND Internal Medicine Gastroenterology
PROC: 0YU70JZ Supplement Right Femoral Region with Synthetic Substitute, Open Approach (ICD-10-PCS; principal; 2019-11-09 21:30)
DX: K41.30 Unilateral femoral hernia, with obstruction, without gangrene, not specified as recurrent (principal); F17.210 Nicotine dependence, cigarettes, uncomplicated; Z83.79 Family history of other diseases of the digestive system
CPT/HCPCS: 36415; 49553; 80053; 83605; 83690; 85025; 96374; 96375; 96376; 99285; C1781; J0131; J1170; J1200; J7120

== ENCOUNTER 2019-11-17 12:15 | Outpatient (CLI) | payer OTHER | END 2019-11-17 23:59 | disposition home or self-care (01) | LOC: LAB.R 12:15 | PROVIDERS: ATTEND Registered Nurse | DX: N30.90 Cystitis, unspecified without hematuria (principal) | CPT/HCPCS: 87086 ==

== ENCOUNTER 2019-11-19 13:31 | Outpatient (CLI) | payer OTHER ==
[2019-11-21 13:00] LABS: HSV 1 IGG TYPE SPECIFIC AB <0.90 index; HSV 2 IGG TYPE SPECIFIC AB <0.90 index
== END 2019-11-19 13:32 | disposition home or self-care (01) ==
LOC: LAB.S 13:31
PROVIDERS: ATTEND Registered Nurse
DX: L98.9 Disorder of the skin and subcutaneous tissue, unspecified (principal); N30.90 Cystitis, unspecified without hematuria
CPT/HCPCS: 36415; 81599; 86592; 86695; 86696

== ENCOUNTER 2020-12-26 07:00 | Outpatient (CLI) | payer OTHER ==
--- NOTE | 2020-12-27 15:31 | XRAY Report ---
PROCEDURE: Knee 3 View LT INDICATIONS: SYNOVIAL CYST OF LEFT KNEE TECHNIQUE: 3 views of the left knee(s) were acquired. COMPARISON: None. FINDINGS: Bones: No fractures or dislocations. No suspicious bony lesions. Mild medial and patellofemoral com partment osteoarthritis. Soft tissues: No joint effusion. No suspicious soft tissue calcifications. IMPRESSION: 1. No fracture. No acute osseous lesion. If there persistent symptoms or continued clinical concern f or pathology, then repeat plain film radiographs (7-10 days) or advanced imaging (CT, MR, bone scan) should be considered for further evaluation. 2. Mild medial and patellofemoral compartment osteoarthritis. Reviewed by: Pam Mccabe MD, PhD on 12/27/2020 3:29 PM PST Approved by: Pam Mccabe MD, PhD on 12/27/2020 3:29 PM PST Station ID: [id number]
== END 2020-12-26 23:59 | disposition home or self-care (01) ==
LOC: DI.S 07:00
PROVIDERS: ATTEND Nurse Practitioner
DX: M17.12 Unilateral primary osteoarthritis, left knee (principal)

== ENCOUNTER 2021-03-04 13:12 | Emergency (ER) | payer OTHER ==
--- NOTE | 2021-03-04 13:32 | ED Physician Documentation ---
History of Present Illness - Stated complaint Stated Complaint: CHEST PX - Chief complaint Chief Complaint: Cardiac - History obtained from History obtained from: Patient - History of Present Illness Timing: How many weeks ago (2) Pain level max: 2 Pain level now: 2 - Additonal information Additional information: 55-year-old male presents to the emergency department with constant chest pain for the past 2 weeks. States that it feels like a dull ache. Worse with movement and palpation, better with holding steady pressure. 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 Does not recall any injuries. No fevers. No chills. No cough. No history of acute coronary syndrome. No nausea or vomiting. No abdominal pain. Review of Systems Ten Systems: 10 systems reviewed and negative Constitutional: denies: Fever, Chills GI: denies: Vomiting Skin: denies: Rash Musculoskeletal: denies: Neck pain, Back pain Neurologic: denies: Headache PD PAST MEDICAL HISTORY - Past Medical History Cardiovascular: None Respiratory: Other Neuro: None Endocrine/Autoimmune:  GI: Other : None HEENT: None Psych:  Musculoskeletal: None Derm: None - Past Surgical History Past Surgical History: Yes General: Other (hemorrhoid surgery) Ortho: Knee replacement - Present Medications Home Medications: Ambulatory Orders Medication Instructions Recorded Confirmed Ibuprofen [Motrin] 800 mg PO Q8H PRN #30 tablet 02/04/19 Polyethylene Glycol 3350 [Miralax] 17 gm PO DAILY PRN #1 powder 11/09/19 oxyCODONE [Roxicodone] 5 mg PO Q6H PRN #15 tablet 11/09/19 Aspirin Chewable [St Mannie 81 mg PO DAILY #30 tablet 03/04/21 Aspirin] - Allergies Allergies/Adverse Reactions: Allergies Allergy/AdvReac Type Severity Reaction Status Date / Time Opioids - Morphine Analogues AdvReac Itching Verified 03/04/21 13:15 - Social History Does the pt smoke?: Yes Smoking Status: Current every day smoker Does the pt drink ETOH?: Yes Does the pt have substance abuse?: Yes - Immunizations Immunizations are current?: Yes - POLST Patient has POLST: No PD ED PE NORMAL - Vitals Vital signs reviewed: Yes - General General: Alert and oriented X 3, No acute distress - HEENT HEENT: Moist mucous membranes - Neck Neck: Supple, no meningeal sign - Cardiac Cardiac: RRR, Strong equal pulses - Respiratory Respiratory: No respiratory distress, Clear bilaterally, Other (tender to palpation over the anterior chest wall, reproduces his pain. No crepitus. No ecchymosis.) - Abdomen Abdomen: Soft, Non tender, Non distended - Derm Derm: Warm and dry - Extremities Extremities: No edema, No calf tenderness / cord - Neuro Neuro: Alert and oriented X 3 - Psych Psych: Normal mood, Normal affect Results - Vitals Vitals: Vital Signs - 24 hr 03/04/21 03/04/21 13:15 13:30 Temperature 36.5 C Heart Rate 65 71 Respiratory 16 16 Rate Blood Pressure 147/92 H 149/88 H O2 Saturation 99 99 Oxygen O2 Source Room air - EKG (time done) 1316 Rate: Rate (enter#) (62) Rhythm: NSR [place]: Anterior hemiblock (LAFB) Intervals: RBBB Ischemia: ST elevation c/w repol Compare to prior EKG: Unchanged from prior EKG - Labs Labs: Laboratory Tests 03/04/21 03/04/21 03/04/21 13:30 13:30 13:30 WBC 9.3 RBC 5.12 Hgb 15.8 Hct 46.4 MCV 90.6 MCH 30.9 MCHC 34.1 RDW 12.8 Plt Count 247 MPV 8.9 Neut # (Auto) 7.5 H Lymph # (Auto) 1.1 L [place] # (Auto) 0.6 Eos # (Auto) 0.1 Baso # (Auto) 0.0 Absolute Nucleated RBC 0.00 Nucleated RBC % 0.0 Sodium 137 Potassium 4.1 Chloride 101 Carbon Dioxide 27 Anion Gap 9.0 BUN 13 Creatinine 0.6 Estimated GFR (MDRD) 141 Glucose 111 H Calcium 9.3 Total Bilirubin 1.1 H AST 31 ALT 25 Alkaline Phosphatase 81 Troponin I High Sens 3.8 Total Protein 7.6 Albumin 4.3 Globulin 3.3 Albumin/Globulin Ratio 1.3 Lipase 26 - Rads (name of study) cxr Radiology: Prelim report reviewed, EMP read contemporaneously, See rad report (No acute cardiopulmonary process demonstrated radiographically. ) PD MEDICAL DECISION MAKING - ED course Complexity details: reviewed results, re-evaluated patient, considered differential (No ST elevation OK, no aortic dissection, no PE, no tension pneumothorax, no aortic aneurysm), d/w patient ED course: 55-year-old male with atypical anterior chest wall pain. Reproducible with palpation and movement. No acute findings on EKG. Negative troponin after 2 weeks of symptoms. No evidence of PE. No tachycardia or hypoxia. Not sharp or pleuritic. 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 We will continue supportive care and have him follow-up with his doctor next week in order to schedule a cardiac stress test. He will start on an aspirin daily until that time. He will return if he worsens. Patient counseled regarding signs and symptoms for which I believe and urgent re-evaluation would be necessary. Patient with good understanding of and agreement to plan and is comfortable going home at this time This document was made in part using voice recognition software. While efforts are made to proofread this document, sound alike and grammatical errors may occur. Departure - Departure Disposition: 01 Home, Self Care Clinical Impression: Chest pain Qualifiers: Chest pain type: unspecified Qualified Code(s): R07.9 - Chest pain, unspecified Instructions: ED Chest Pain Atypical Unkn Cause Follow-Up: Mariah Braswell ARNP [Primary Care Provider] - Within 1 week Prescriptions: Aspirin Chewable [St Mannie Aspirin] 81 mg PO DAILY #30 tablet Comments: Please start on a baby aspirin daily. Follow-up with your doctor next week to schedule a cardiac stress test. Return if you worsen. Your testing is normal today.
[2021-03-04 13:37] LABS: BASOPHILS % (AUTO) 0.3 %; EOSINOPHILS # (AUTO) 0.1 10^3/uL (0.0-0.7); EOSINOPHILS % (AUTO) 0.5 %; HCT - HEMATOCRIT 46.4 % (42.0-52.0); HGB - HEMOGLOBIN 15.8 g/dL (14.0-18.0); LYMPHOCYTES # (AUTO) 1.1 10^3/uL (1.5-3.5); MEAN CORPUSCULAR HEMOGLOBIN 30.9 pg (27.0-31.0); MEAN CORPUSCULAR HGB CONC 34.1 g/dL (32.0-36.0); MEAN CORPUSCULAR VOLUME 90.6 fL (80.0-94.0); MEAN PLATELET VOLUME 8.9 fL (7.4-11.4); MONOCYTES # (AUTO) 0.6 10^3/uL (0.0-1.0); MONOCYTES % (AUTO) 6.2 %; NEUTROPHILS # (AUTO) 7.5 10^3/uL (1.5-6.6); NEUTROPHILS % (AUTO) 80.8 %; PLT - PLATELET COUNT 247 10^3/uL (130-450); RED BLOOD COUNT 5.12 10^6/uL (4.70-6.10); RED CELL DISTRIBUTION WIDTH 12.8 % (12.0-15.0); WHITE BLOOD COUNT 9.3 x10^3/uL (4.8-10.8)
--- NOTE | 2021-03-04 13:46 | XRAY Report ---
PROCEDURE: Chest 1 View X-Ray INDICATIONS: Chest pain TECHNIQUE: One view of the chest was acquired. COMPARISON: 02/04/2019 FINDINGS: Surgical changes and devices: None. Lungs and pleura: No pleural effusions or pneumothorax. Lungs are clear. Mediastinum: Mediastinal contours appear normal. Heart size is normal. Bones and chest wall: No suspicious bony lesions. Overlying soft tissues appear unremarkable. IMPRESSION: No acute cardiopulmonary process demonstrated radiographically. Reviewed by: Gavin Robles MD on 03/04/2021 1:45 PM PDT Approved by: Gavin Robles MD on 03/04/2021 1:45 PM PDT Station ID: [id number]
[2021-03-04] MEDS ORDERED: KETOROLAC 30 MG/ML VIAL IVP STA (13:48)
[2021-03-04 13:55] LABS: ALBUMIN 4.3 g/dL (3.2-5.5); ALBUMIN/GLOBULIN RATIO 1.3 (1.0-2.2); BILIRUBIN,TOTAL 1.1 mg/dL (0.2-1.0); CALCIUM 9.3 mg/dL (8.5-10.3); CREATININE 0.6 mg/dL (0.6-1.2); POTASSIUM 4.1 mmol/L (3.5-5.0); TOTAL PROTEIN 7.6 g/dL (6.7-8.2)
[2021-03-04 14:36] VITALS: BP 135/88
== END 2021-03-04 14:36 | disposition home or self-care (01) ==
LOC: ED 13:12
DX: R07.9 Chest pain, unspecified (principal); F17.200 Nicotine dependence, unspecified, uncomplicated
CPT/HCPCS: 36415; 80053; 83690; 84484; 85025; 93005; 96374; 99284

== ENCOUNTER 2021-03-09 21:00 | Emergency (ER) | payer OTHER ==
--- OUTSIDE RECORDS SUMMARY | 2021-03-09 21:04 | EXTERNAL MEDICAL SUMMARY RPT | Continuity of Care Document ---
:1965 Demographics Phone Unavailable Preferred Language Unknown Marital Status Unknown Worship Affiliation Unknown Race Unknown Ethnic Group Unknown Author Organization [facility] Address [address] [place] [address] Phone Social History date description facility [phone]
--- OUTSIDE RECORDS SUMMARY | 2021-03-09 21:06 | EXTERNAL MEDICAL SUMMARY RPT | Continuity of Care Document ---
:1965 Demographics Phone Unavailable Preferred Language Unknown Marital Status Unknown Worship Affiliation Unknown Race Unknown Ethnic Group Unknown Author Organization [facility] Address [address] [id number] Phone Social History date description facility [phone]
[2021-03-09 21:32] LABS: BASOPHILS % (AUTO) 0.5 %; EOSINOPHILS # (AUTO) 0.2 10^3/uL (0.0-0.7); EOSINOPHILS % (AUTO) 3.6 %; HCT - HEMATOCRIT 44.6 % (42.0-52.0); LYMPHOCYTES # (AUTO) 1.9 10^3/uL (1.5-3.5); LYMPHOCYTES % (AUTO) 31.2 %; MEAN CORPUSCULAR HEMOGLOBIN 30.8 pg (27.0-31.0); MEAN CORPUSCULAR HGB CONC 33.6 g/dL (32.0-36.0); MEAN CORPUSCULAR VOLUME 91.6 fL (80.0-94.0); MEAN PLATELET VOLUME 8.9 fL (7.4-11.4); MONOCYTES # (AUTO) 0.5 10^3/uL (0.0-1.0); MONOCYTES % (AUTO) 7.6 %; NEUTROPHILS # (AUTO) 3.5 10^3/uL (1.5-6.6); NEUTROPHILS % (AUTO) 56.9 %; PLT - PLATELET COUNT 235 10^3/uL (130-450); RED BLOOD COUNT 4.87 10^6/uL (4.70-6.10); RED CELL DISTRIBUTION WIDTH 12.8 % (12.0-15.0); WHITE BLOOD COUNT 6.1 x10^3/uL (4.8-10.8)
--- NOTE | 2021-03-09 21:33 | ED Physician Documentation ---
History of Present Illness - Stated complaint Stated Complaint: CP/LT ARM PX - Chief complaint Chief Complaint: Cardiac - Additonal information Additional information: 55-year-old male presents emergency department for evaluation of chest pain that has been ongoing now for nearly 3 weeks. Often described as pressure or a dull ache now with radiation to his left arm which is a new symptom. He sometimes finds that it is worse when he is moving or walking but denies exertional dyspnea. 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 This is in fact now his third emergency department visit in the last 5 days for evaluation of chest pain. He was seen on the by my colleague Dr. King then at [facility] on the with chest pain and was told that his troponin was normal and he was stable for outpatient work-up however today with radiation to the left arm he feels it important to be reevaluated. pt does report a hx of htn which he was able to control with diet He denies headaches, neck pain, abdominal pain nausea or vomiting. Denies any history of previous coronary artery disease. SOC: 1/2 ppd tobacco user until 5 days ago; moderate daily etoh Review of Systems Constitutional: denies: Fever, Chills Eyes: denies: Loss of vision, Decreased vision Ears: denies: Loss of hearing, Ear pain Nose: reports: Reviewed and negative Throat: reports: Reviewed and negative Cardiac: reports: Chest pain / pressure. denies: Palpitations, Pedal edema, Calf pain Respiratory: denies: Dyspnea, Cough GI: denies: Abdominal Pain, Nausea, Vomiting, Constipation : denies: Dysuria Skin: denies: Rash, Lesions Musculoskeletal: denies: Neck pain, Back pain, Extremity pain Neurologic: denies: Generalized weakness, Focal weakness PD PAST MEDICAL HISTORY - Past Medical History Cardiovascular: None Respiratory: Other Neuro: None Endocrine/Autoimmune:  GI: Other : None HEENT: None Psych:  Musculoskeletal: None Derm: None - Past Surgical History Past Surgical History: Yes General: Other (hemorrhoid surgery) Ortho: Knee replacement - Present Medications Home Medications: Ambulatory Orders Medication Instructions Recorded Confirmed Ibuprofen [Motrin] 800 mg PO Q8H PRN #30 tablet 02/04/19 Polyethylene Glycol 3350 [Miralax] 17 gm PO DAILY PRN #1 powder 11/09/19 oxyCODONE [Roxicodone] 5 mg PO Q6H PRN #15 tablet 11/09/19 Aspirin Chewable [St Mannie 81 mg PO DAILY #30 tablet 03/04/21 Aspirin] - Allergies Allergies/Adverse Reactions: Allergies Allergy/AdvReac Type Severity Reaction Status Date / Time Opioids - Morphine Analogues AdvReac Itching Verified 03/04/21 13:15 - Social History Does the pt smoke?: Yes Smoking Status: Current every day smoker Does the pt drink ETOH?: Yes Does the pt have substance abuse?: Yes - Immunizations Immunizations are current?: Yes - POLST Patient has POLST: No PD ED PE EXPANDED - General General: Alert, No acute distress, Anxious - Neck Neck: Supple w/out meningeal sx, No tenderness. No: Adenopathy - Cardiac Cardiac: Regular Rate, Radial strong equal, Pedal strong equal, Cap refill < 2 sec. No: Murmur Present - Respiratory Respiratory: Clear to ausultation teri. No: Distress, Labored - Abdomen Abdomen: Normal Bowel sounds. No: Tender to palpation - Derm Derm: Normal color, Warm and dry. No: Rash - Extremities Extremities: Normal. No: Deformity, Tenderness - Neuro Neuro: Alert and Oriented X 3, CNII-XII intact - Psych Psych: Anxious Results - Vitals Vitals: Vital Signs - 24 hr 03/09/21 21:11 Temperature 37.1 C Heart Rate 59 L Respiratory 17 Rate Blood Pressure 144/115 H O2 Saturation 98 Oxygen O2 Source Room air - EKG (time done) 2105 Rate: Rate (enter#) (61) Rhythm: NSR [place]: Anterior hemiblock Intervals: RBBB Ischemia: ST elevation c/w repol Compare to prior EKG: Unchanged from prior EKG Computer interpretation: Agree with computer - Labs Labs: Laboratory Tests 03/09/21 03/09/21 03/09/21 21:26 21:26 21:26 WBC 6.1 RBC 4.87 Hgb 15.0 Hct 44.6 MCV 91.6 MCH 30.8 MCHC 33.6 RDW 12.8 Plt Count 235 MPV 8.9 Neut # (Auto) 3.5 Lymph # (Auto) 1.9 [place] # (Auto) 0.5 Eos # (Auto) 0.2 Baso # (Auto) 0.0 Absolute Nucleated RBC 0.00 Nucleated RBC % 0.0 Sodium 139 Potassium 4.4 Chloride 101 Carbon Dioxide 30 Anion Gap 8.0 BUN 19 Creatinine 0.7 Estimated GFR (MDRD) 118 Glucose 108 H Calcium 9.1 Total Bilirubin 0.5 AST 24 ALT 27 Alkaline Phosphatase 75 Troponin I High Sens 5.1 Total Protein 7.0 Albumin 3.9 Globulin 3.1 Albumin/Globulin Ratio 1.3 Lipase 32 - Rads (name of study) CXR Radiology: EMP read indepedently (no acute cardiopulmonary process) PD MEDICAL DECISION MAKING - ED course Complexity details: reviewed results, re-evaluated patient, considered differential, d/w patient ED course: 55-year-old male presents to the emergency department for evaluation of intermittent left-sided chest pain now with radiation to the left arm. This is his third emergency department visit for similar in the last 5 days. His EKG shows right bundle branch block with an anterior block however it is unchanged from previous. Chest x-ray shows no acute abnormalities. His heart score is 3. I did discuss this case with Dr. Loyda Singer the nocturnal hospitalist discussed possibility of an observation admission for stress test in the a.m. Unfortunately we do not have the ability to do stress test at this time. However what remains is a hemodynamically stable gentleman with an unchanging EKG and negative troponins despite many week sof pain. he also has no hypoxia, pleuritic component of chest pain. Wells crteria negative. Doubt PE. 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 He will continue to follow-up with his primary care provider Geetha poole as an outpatient in order to help get the outpatient stress testing and echocardiogram ordered. Emergent return precautions were discussed for worsening symptoms. Departure - Departure Disposition: 01 Home, Self Care Clinical Impression: Chest pain Qualifiers: Chest pain type: unspecified Qualified Code(s): R07.9 - Chest pain, unspecified Condition: Stable Record reviewed to determine appropriate education?: Yes Follow-Up: Mariah Poole ARNP [Primary Care Provider] - Comments: Jose you were seen today for chest pain. The EKG today is essentially unchanged from your most recent visit as well as the one done a few years ago. It is important that you continue to follow-up with your primary care provider to arrange an outpatient echocardiogram and stress test. If at any point you find that your symptoms are worsening, you have shortness of air, fainting episodes please return immediately to the emergency department.
--- NOTE | 2021-03-09 21:41 | XRAY Report ---
PROCEDURE: Chest 1 View X-Ray INDICATIONS: Chest Pain TECHNIQUE: One view of the chest was acquired. COMPARISON: None FINDINGS: Surgical changes and devices: None. Lungs and pleura: No pleural effusions or pneumothorax. Lungs are clear. Mediastinum: Mediastinal contours appear normal. Heart size is normal. Bones and chest wall: No suspicious bony lesions. Overlying soft tissues appear unremarkable. IMPRESSION: No acute cardiopulmonary abnormality Reviewed by: Domenico Simmons on 03/09/2021 9:39 PM PDT Approved by: Domenico Simmons on 03/09/2021 9:39 PM PDT Station ID: [id number]
[2021-03-09 21:47] LABS: ALBUMIN 3.9 g/dL (3.2-5.5); ALBUMIN/GLOBULIN RATIO 1.3 (1.0-2.2); BILIRUBIN,TOTAL 0.5 mg/dL (0.2-1.0); CALCIUM 9.1 mg/dL (8.5-10.3); CREATININE 0.7 mg/dL (0.6-1.2); POTASSIUM 4.4 mmol/L (3.5-5.0)
[2021-03-09 22:35] VITALS: BP 139/82
== END 2021-03-09 22:34 | disposition home or self-care (01) ==
LOC: ED 21:00
DX: R07.9 Chest pain, unspecified (principal); M79.602 Pain in left arm; I45.2 Bifascicular block; I10 Essential (primary) hypertension; Z87.891 Personal history of nicotine dependence
CPT/HCPCS: 36415; 80053; 83690; 84484; 85025; 93005; 99284

== ENCOUNTER 2021-08-17 14:30 | Outpatient (CLI) | payer OTHER ==
[2021-08-17] MEDS ORDERED: IOPAMIDOL-300 100 ML VIAL ONE (14:51)
[2021-08-17] MEDS ORDERED: IOVERSOL 320 50 ML VIAL ONE (14:52)
--- NOTE | 2021-08-17 17:26 | CT Report ---
PROCEDURE: Abdomen/Pelvis W INDICATIONS: SEVERE RIGHT GROIN PAIN CONTRAST: IV CONTRAST: Isovue 300 ml: 100 PO CONTRAST: Optiray 320 ml50 TECHNIQUE: After the administration of IV and oral contrast, 5 mm thick sections acquired from the diaphragms to the symphysis. 5 mm thick coronal and sagittal reformats were acquired. For radiation dose reducti on, the following was used: automated exposure control, adjustment of mA and/or kV according to odin ent size. COMPARISON: None. FINDINGS: Image quality: Excellent. ABDOMEN: Lung bases: Lung bases are clear. Heart size is normal. Solid organs: Liver and spleen are normal in size and enhancement. Gallbladder wall does not appear thickened. Biliary system is non dilated. Pancreas enhances normally. No adrenal nodules. Kidn eys demonstrate normal size and enhancement, without hydronephrosis. Peritoneum and bowel: Bowel loops demonstrate normal wall thickness and caliber. No free fluid or a ir. A normal appendix is incidentally noted. Diverticulosis can be seen, without shin findings of active diverticulitis. Nodes and vessels: No retroperitoneal or mesenteric adenopathy by size criteria. Aorta and inferior vena cava are normal in size. Miscellaneous: No ventral hernias. PELVIS: Genitourinary: Bladder wall thickness is normal. Miscellaneous: No inguinal hernias or adenopathy. In this patient with this given history, scrutiny is given to the right groin. There is mild soft tissue thickening seen along the right inguinal reuben l, as on series 3 image 79 and on series 6 image 12. No findings of recurrent hernia can be seen. No groin masses are seen. Bones: No suspicious bony lesions. No vertebral body compression fractures. Age-appropriate degene rative changes are seen, including moderate disc space narrowing at the L1-L2 level. IMPRESSION: Mild soft tissue thickening is seen along the right inguinal canal, which may be related to postopera tive changes from prior hernia repair. No findings of recurrent hernia are seen. Incidental note is made of: Normal appendix Diverticulosis is seen, yet without findings of active diverticulitis. Reviewed by: Patrick Zacarias MD on 08/17/2021 4:24 PM AKLEXIS Approved by: Patrick Zacarias MD on 08/17/2021 4:24 PM AKDT Station ID: [id number]
[2021-08-17] MEDS ORDERED: IOVERSOL 320 50 ML VIAL PO ONE (17:32)
[2021-08-17] MEDS ORDERED: IOPAMIDOL-300 100 ML VIAL IVP ONE (17:33)
== END 2021-08-17 14:31 | disposition home or self-care (01) ==
LOC: DI 14:30
PROVIDERS: ATTEND Surgery
DX: R10.31 Right lower quadrant pain (principal)
CPT/HCPCS: 74177; Q9967

== ENCOUNTER 2023-05-29 09:38 | Day surgery (SDC) | payer OTHER ==
[2023-05-29] MEDS ORDERED: ceFAZolin 2 GM VIAL ONE (09:57)
[2023-05-29] MEDS ORDERED: LACTATED RINGERS 1,000 ML IV ONE (10:31)
[2023-05-29] MEDS ORDERED: fentaNYL 100 MCG/2 ML VIAL IVP PRN (11:06)
[2023-05-29] MEDS ORDERED: HYDROmorphone 0.5 MG/0.5 ML SYRINGE IVP PRN (11:06)
[2023-05-29] MEDS ORDERED: ePHEDrine 50 MG/ML VIAL IVP PRN (11:06)
[2023-05-29] MEDS ORDERED: METOCLOPRAMIDE 10 MG/2 ML VIAL IVP PRN (11:06)
[2023-05-29] MEDS ORDERED: ONDANSETRON 4 MG/2 ML VIAL IVP PRN ×2 (11:06→13:41)
[2023-05-29] MEDS ORDERED: MORPHINE 2 MG/ML CARPUJECT IVP PRN (11:06)
[2023-05-29] MEDS ORDERED: ATROPINE ABBOJECT 1 MG/10 ML SYRINGE IVP PRN (11:06)
[2023-05-29] MEDS ORDERED: NALOXONE 0.4 MG/ML VIAL IVP PRN (11:06)
[2023-05-29] MEDS ORDERED: MIDAZOLAM 2 MG/2 ML VIAL ONE (11:21)
[2023-05-29] MEDS ORDERED: LIDOCAINE-PF 2% 10 ML AMP SUBQ ONE (11:22)
[2023-05-29] MEDS ORDERED: PROPOFOL 200 MG/20 ML VIAL IVP ONE (11:22)
[2023-05-29] MEDS ORDERED: ROCURONIUM 50 MG/5 ML VIAL ONE ×2 (11:23→13:07)
[2023-05-29] MEDS ORDERED: LIDOCAINE OINTMENT 5% 35.44 GM TUBE ONE (11:42)
[2023-05-29] MEDS ORDERED: LIDOCAINE JELLY 2% 6 ML JEL.PF.APP ONE (11:42)
[2023-05-29] MEDS ORDERED: BUPIVACAINE 0.25% PF 30 ML VIAL ONE (11:42)
[2023-05-29] MEDS ORDERED: LACTATED RINGERS 1,000 ML IV SCH (12:00)
[2023-05-29] MEDS ORDERED: KETOROLAC 30 MG/ML VIAL ONE (12:05)
[2023-05-29] MEDS ORDERED: DEXAMETHASONE 4 MG/ML VIAL ONE (12:05)
[2023-05-29] MEDS ORDERED: ONDANSETRON 4 MG/2 ML VIAL ONE (12:05)
[2023-05-29] MEDS ORDERED: BUPIVACAINE 0.25% PF 30 ML VIAL SUBQ ONE ×2 (12:36)
[2023-05-29] MEDS ORDERED: SUGAMMADEX 200 MG/2 ML VIAL IVP ONE (12:50)
[2023-05-29] MEDS ORDERED: fentaNYL 100 MCG/2 ML VIAL ONE (13:12)
[2023-05-29] MEDS ORDERED: LIDOCAINE JELLY 2% 6 ML JEL.PF.APP UR ONE (13:15)
--- NOTE | 2023-05-29 13:29 | OPERATIVE REPORT ---
Operative Report - General Procedure Date: 05/29/23 Planned Procedure: PPH hemorrhoidectomy Pre-Op Diagnosis: Symptomatic prolapsing hemorrhoids Procedure Performed: PPH hemorrhoidectomy (stapled hemorrhoidectomy) Post Op Diagnosis: Same - Procedure Note Primary Surgeon: Jovanny Omer MD Anesthesia Provider: Daniel An CRNA Anesthesia Technique: General ET tube, Local (60 mL 1/4% marcaine) IV Fluids (mL): 1,000 Estimated Blood Loss (mL): 5 Drain/Tube Type: Other (None.) Indications: As above Complications: None. - Other Other Information/Narrative: After verbal and written informed consent was obtained detailing the operation, the alternatives the operation including no operation, risks of infection, bleeding requiring transfusion with its risks, nerve injury, and and after I met with the patient confirming the surgery and the site of surgery, the patient was brought to the operative suite and placed supine on the operating table. Great care was taken to avoid pressure points to prevent pressure necrosis or nerve injury. Monitoring devices were applied. Daniel An CRNA sedated and anesthetized the patient for the entire procedure. The patient was then placed in prone jackknife position and prepped and draped in the usual sterile manner. Again, great care was taken to avoid pressure points to prevent pressure necrosis or nerve injury. A "time in" then confirmed that the patient was identified with 3 identifiers (name, date, and medical record number), the history and physical was updated and in the chart, the signed consent confirming the procedure was in the chart, the patient was in the correct position, the aforementioned prophylactic measures were in place or given, we had the correct personnel and equipment to complete the procedure and that anesthesia and the surgical team were given an opportunity to express any concerns. With the agreement of everyone in the room we proceeded with the operation. Digital rectal examination was done progressively from 1 to 3 fingers gently to dilate the area. Once the area was appropriately lubricated, the PPH kit was opened and the dilator, sleeve, and retractor were placed into the patient's anus and the retractor was sewn in place above and below using a 0 Prolene suture. The dilator was then removed and using the markings on the sleeve a circumferential 2-0 Prolene purse-string suture was placed 4 cm up from the anal verge. Upon confirming that this was a circumferential gentle tension on the suture proved that there was a good purse-string with no "skip" areas. The sleeve was removed and the anvil was placed past this purse-string suture and the purse-string was tied tied around the post. The suture was then passed through the orange hole on the anvil and then tied again to ensure that it was secured to the post. The stapler was then attached to the post and screwed down tight until the green line could be seen indicating that there was good tissue approximation. Over 3 minutes were allowed to elapse to allow for evacuation of blood from the tissues. The stapler was then fired and following the firing the stapler was removed. An incomplete "doughnut" of hemorrhoidal tissue was noted to be present on the post of the anvil. The retractor was similarly removed after cutting the sutures and at this point a bivalve retractor was used to look at the staple line circumferentially. Despite the incomplete doughnut there was an intact staple line on visual and digital evaluation. Meticulous hemostasis was noted to be present and no hemostatic sutures were required. Mildly concerning was the excoriation of the skin perianally. The perianal area was injected circumferentially using the aforementioned local anesthesia for long-term pain control. A Gelfoam roll was come constructed using Gelfoam and lidocaine jelly and inserted into the patient's anus for long-term pain control as well as to absorb any blood that may be present. An ABD was placed exteriorly. At this point a timeout was performed that confirmed that all counts were correct x2, the procedure that was performed, the blood loss, the IV fluids administered, the patient's condition, and any concerns of the operating team had. Having tolerated the procedure well, the patient was extubated and taken to recovery room in good and stable condition. The plan is for outpatient discharge when the patient is adequately recovered. CPT 57393 This document was created in part using voice recognition technology. Because of the inherent limitations of the system, occasional same sounding word substitutions and grammatical errors do occur and persist despite proofreading. Please read this document for content.
[2023-05-29] MEDS ORDERED: LACTATED RINGERS 900 ML IV ONE (13:30)
--- NOTE | 2023-05-29 14:01 | ANESTHESIA POST OP EVALUATION ---
Anesthesia Post Eval - Post Anesthesia Eval Vitals: Last Vital Signs Temp 37. C 05/29/23 13:52 Pulse 66 05/29/23 13:52 Resp 18 05/29/23 13:52 BP 138/88 H 05/29/23 13:52 Pulse Ox 100 05/29/23 13:52 O2 Flow Rate CV Function Including HR & BP: Stable Pain Control: Satisfactory Nausea & Vomiting: Negative Mental Status: Baseline Respiratory Status: Airway Patent Hydration Status: Satisfactory Anesthesia Complications: None
[2023-05-29 14:39] VITALS: BP 117/88
--- NOTE | 2023-06-03 07:39 | ANESTHESIA ---
Pre-Anesthesia VS, & Labs - Diagnosis screening, hemorrhoids - Procedure colonoscopy, hmorrhoidectomy Vital Signs: Temp Pulse Resp BP Pulse Ox O2 Flow Rate 36.2 C L 60 16 117/88 H 98 05/29/23 14:00 05/29/23 14:36 05/29/23 14:36 05/29/23 14:36 05/29/23 14:36 Height: 5 ft 8 in Weight (kg): 65 kg Body Mass Index: 21.7 BMI Classification: Normal - NPO >8 hours - Lab Results Lab results reviewed: Yes Home Medications and Allergies Allergies/Adverse Reactions: Allergies Allergy/AdvReac Type Severity Reaction Status Date / Time Opioids - Morphine Analogues AdvReac Itching Verified 03/04/21 13:15 Anes History & Medical History - Anesthetic History Anesthesia Complications: reports: No previous complications Family history of Anesthesia Complications: Denies Family history of Malignant Hyperthermia: Denies - Medical History Cardiovascular: reports: None Pulmonary: reports: Other Gastrointestinal: reports: Other Urinary: reports: None Neuro: reports: None Musculoskeletal: reports: None Endocrine/Autoimmune: Blood Disorders: reports: None Skin: reports: None Smoking Status: Current every day smoker - Surgical History General: reports: Other Orthopedic: reports: Knee replacement Exam General: Alert, Oriented x3, Cooperative Dental: Partials Upper (brifge) Mouth Openin Fingerbreadth Neck Mobility: Normal Mallampati classification: II Thyromental Distance: 4-6 cm Respiratory: Lungs clear, Normal breath sounds, No respiratory distress Cardiovascular: Regular rate Neurological: Normal speech Mental/Cognitive Status: Alert/Oriented X3, Normal for patient Cognitive Status: Within normal limits Plan Anesthesia Type: General Consent for Procedure(s) Verified and Reviewed: Yes Code Status: Attempt Resuscitation ASA classification: 2-Mild systemic disease Is this case an emergency?: No
== END 2023-05-29 09:39 | disposition home or self-care (01) ==
LOC: SDS 09:38
PROVIDERS: ATTEND Surgery
PROC: 06BY3ZC Excision of Hemorrhoidal Plexus, Percutaneous Approach (ICD-10-PCS; principal; 2023-05-29 11:15)
PROC: 0DBN8ZX Excision of Sigmoid Colon, Via Natural or Artificial Opening Endoscopic, Diagnostic (ICD-10-PCS; 2023-05-29 11:15)
DX: Z12.11 Encounter for screening for malignant neoplasm of colon (principal); K64.8 Other hemorrhoids; K52.9 Noninfective gastroenteritis and colitis, unspecified; K57.30 Diverticulosis of large intestine without perforation or abscess without bleeding; F17.200 Nicotine dependence, unspecified, uncomplicated
CPT/HCPCS: 45380; 46947; A9270; J7120

== ENCOUNTER 2023-09-21 15:19 | Emergency (ER) | payer OTHER ==
[2023-09-21] MEDS ORDERED: ONDANSETRON 4 MG/2 ML VIAL IVP STA (15:38)
[2023-09-21] MEDS ORDERED: HYDROmorphone 1 MG/ML CARPUJECT IVP STA ×2 (15:38→17:04)
[2023-09-21] MEDS ORDERED: SODIUM CHLORIDE 0.9% 1,000 ML IV STA (15:38)
--- NOTE | 2023-09-21 15:41 | ED Physician Documentation ---
PD HPI ABD PAIN - Stated complaint Stated Complaint: SOA/ABD PX - Chief complaint Chief Complaint: Abd Pain - History obtained from History obtained from: Patient - Additional information Additional information: Previously healthy 58-year-old gentleman with very remote history of tobacco use got sick 4 days ago. It started with profuse diarrhea, nonbloody. That has since resolved but he developed a cough which she had a hard time producing sputum from because he felt like he popped a rib out. He went to his chiropractor who works for an hour and a half on his dislocated rib without success. He still feeling very short of breath. Today he was able to produce a glob of brown sputum. He is noted to be febrile but did not know when his fever started. No sick contacts or recent travel. He has developed some diffuse abdominal pain with all of this. He is very nauseous especially when anything touches his teeth. PD PAST MEDICAL HISTORY - Past Medical History Past Medical History: Yes Cardiovascular: None Respiratory: Other Neuro: None Endocrine/Autoimmune:  GI: Other : None HEENT: None Psych:  Musculoskeletal: None Derm: None - Past Surgical History Past Surgical History: Yes General: Other Ortho: Knee replacement - Present Medications Home Medications: Ambulatory Orders Medication Instructions Recorded Confirmed Ibuprofen [Motrin] 800 mg PO Q8H PRN #30 tablet 02/04/19 05/29/23 Docusate Sodium 250Mg Capsule 250 mg PO DAILY #10 cap 05/29/23 [Colace 250Mg Capsule] Ketorolac [Toradol] 10 mg PO Q4H PRN #20 tablet 05/29/23 Amox/Clav 875/125 [Augmentin] 1 each PO TID #21 tablet 09/21/23 Doxycycline [Vibramycin] 100 mg PO BID #14 tablet 09/21/23 Oxycodone HCl/Acetaminophen 1 - 2 each PO Q6H PRN #14 tablet 09/21/23 [Percocet 5-325 mg Tablet] - Allergies Allergies/Adverse Reactions: Allergies Allergy/AdvReac Type Severity Reaction Status Date / Time Opioids - Morphine Analogues AdvReac Itching Verified 03/04/21 13:15 - Social History Does the pt smoke?: Yes Smoking Status: Current every day smoker Does the pt drink ETOH?: Yes Does the pt have substance abuse?: Yes - Immunizations Immunizations are current?: Yes - POLST Patient has POLST: No PD ED PE NORMAL - Vitals Vital signs reviewed: Yes - General General: Alert and oriented X 3, Other (He appears miserable but nontoxic. He is febrile and modestly tachycardic) - HEENT HEENT: PERRL, EOMI - Neck Neck: Supple, no meningeal sign, No bony TTP - Cardiac Cardiac: No murmur, Other (rapid/regular) - Respiratory Respiratory: No respiratory distress, Other (Lungs are grossly clear that said he is significantly splinting his breaths with poor air motion.) - Abdomen Abdomen: Normal bowel sounds, Soft, Other (Mild diffuse tenderness without surgical signs) - Derm Derm: Normal color, Warm and dry - Neuro Neuro: Alert and oriented X 3, Normal speech Results - Vitals Vitals: Vital Signs - 24 hr 09/21/23 09/21/23 15:23 18:52 Temperature 38.1 C H 37.6 C Heart Rate 106 H 88 Respiratory 22 18 Rate Blood Pressure 130/90 H 130/88 H O2 Saturation 94 96 Oxygen O2 Source Room air - Labs Labs: Laboratory Tests 09/21/23 09/21/23 09/21/23 15:35 15:42 15:42 WBC 12.9 H RBC 5.27 Hgb 14.9 Hct 43.2 MCV 82.0 MCH 28.3 MCHC 34.5 RDW 13.1 Plt Count 291 MPV 9.3 Neut # (Auto) 10.9 H Lymph # (Auto) 0.9 L Randolph # (Auto) 0.9 Eos # (Auto) 0.0 Baso # (Auto) 0.1 Absolute Nucleated RBC 0.00 Nucleated RBC % 0.0 Sodium 129 L Potassium 3.8 Chloride 94 L Carbon Dioxide 25 Anion Gap 10.0 BUN 11 Creatinine 0.7 Estimated GFR (MDRD) 117 Glucose 131 H Lactic Acid Calcium 8.9 Total Bilirubin 0.6 AST 27 ALT 20 Alkaline Phosphatase 199 H Total Protein 7.4 Albumin 3.4 Globulin 4.0 Albumin/Globulin Ratio 0.9 L Urine Color Urine Clarity Urine pH Ur Specific [place] Urine Protein Urine Glucose (UA) Urine Ketones Urine Occult Blood Urine Nitrite Urine Bilirubin Urine Urobilinogen Ur Leukocyte Esterase Urine RBC Urine WBC Ur Squamous Epith Cells Urine Bacteria Urine Culture Comments Nasal Adenovirus (PCR) NOT DETECTED Nasal B. parapertussis DNA (PCR) NOT DETECTED Nasal Coronavir 229E PCR NOT DETECTED Nasal Coronavir HKU1 PCR NOT DETECTED Nasal Coronavir NL63 PCR NOT DETECTED Nasal Coronavir OC43 PCR NOT DETECTED Nasal Enterovir/Rhinovir PCR NOT DETECTED Nasal Influenza B PCR NOT DETECTED Nasal Influenza A PCR NOT DETECTED Nasal Parainfluen 1 PCR NOT DETECTED Nasal Parainfluen 2 PCR NOT DETECTED Nasal Parainfluen 3 PCR NOT DETECTED Nasal Parainfluen 4 PCR NOT DETECTED Nasal RSV (PCR) NOT DETECTED Nasal B.pertussis DNA PCR NOT DETECTED Nasal C.pneumoniae (PCR) NOT DETECTED Jose Human Metapneumo PCR NOT DETECTED Nasal M.pneumoniae (PCR) NOT DETECTED Nasal SARS-CoV-2 (PCR) NOT DETECTED 09/21/23 09/21/23 15:42 16:45 WBC RBC Hgb Hct MCV MCH MCHC RDW Plt Count MPV Neut # (Auto) Lymph # (Auto) Randolph # (Auto) Eos # (Auto) Baso # (Auto) Absolute Nucleated RBC Nucleated RBC % Sodium Potassium Chloride Carbon Dioxide Anion Gap BUN Creatinine Estimated GFR (MDRD) Glucose Lactic Acid 0.9 Calcium Total Bilirubin AST ALT Alkaline Phosphatase Total Protein Albumin Globulin Albumin/Globulin Ratio Urine Color YELLOW Urine Clarity CLEAR Urine pH 6.5 Ur Specific [place] <=1.005 Urine Protein TRACE Urine Glucose (UA) NEGATIVE Urine Ketones NEGATIVE Urine Occult Blood TRACE-INTA Urine Nitrite NEGATIVE Urine Bilirubin NEGATIVE Urine Urobilinogen 0.2 (NORMAL) Ur Leukocyte Esterase NEGATIVE Urine RBC 0-5 Urine WBC 0-3 Ur Squamous Epith Cells RARE Squamous Urine Bacteria Rare Urine Culture Comments NOT INDICATED Nasal Adenovirus (PCR) Nasal B. parapertussis DNA (PCR) Nasal Coronavir 229E PCR Nasal Coronavir HKU1 PCR Nasal Coronavir NL63 PCR Nasal Coronavir OC43 PCR Nasal Enterovir/Rhinovir PCR Nasal Influenza B PCR Nasal Influenza A PCR Nasal Parainfluen 1 PCR Nasal Parainfluen 2 PCR Nasal Parainfluen 3 PCR Nasal Parainfluen 4 PCR Nasal RSV (PCR) Nasal B.pertussis DNA PCR Nasal C.pneumoniae (PCR) Jose Human Metapneumo PCR Nasal M.pneumoniae (PCR) Nasal SARS-CoV-2 (PCR) - Rads (name of study) 1 view chest x-ray showing right upper lobe pneumonia Relevant Findings:: Final report received, EMP independent interpretation of test CT abdomen pelvis with diverticulitis and a small associated fluid collection Relevant Findings:: Final report received, EMP independent interpretation of test PD Medical Decision Making - ED course ED course: 58-year-old gentleman presents with shortness of breath, fever, and chest pain and found to have a significant pneumonia on x-ray. PSI score 76. Feeling much better after IV fluids, Rocephin, Zithromax, and divided doses of IV Dilaudid. He also had some abdominal pain and found to have diverticulitis. There was an associated fluid collection but the radiologist felt this was unlikely to be abscess. Unlikely to be neoplasia as he had a negative colonoscopy for same just within the last 3 to 4 months. He was minimally tender and would like to be discharged but was given close return precautions. Departure - Departure Disposition: 01 Home, Self Care Clinical Impression: Diverticulitis of gastrointestinal tract Pneumonia Qualifiers: Pneumonia type: due to unspecified organism Laterality: right Lung location: upper lobe of lung Qualified Code(s): J18.9 - Pneumonia, unspecified organism Condition: Good Record reviewed to determine appropriate education?: Yes Instructions: Pneumonia Dc, ED Diverticulitis Prescriptions: Amox/Clav 875/125 [Augmentin] 1 each PO TID #21 tablet Oxycodone HCl/Acetaminophen [Percocet 5-325 mg Tablet] 1 - 2 each PO Q6H PRN #14 tablet PRN Reason: pain Doxycycline [Vibramycin] 100 mg PO BID #14 tablet Comments: I sent your prescriptions electronically to [facility] in [place]. As discussed, you actually of 2 things going on tonight, the right upper lobe pneumonia is actually probably the more severe of the 2, you received IV antibiotics and IV fluids for that here. Your labs and vital signs do not mandate admission to the hospital but please return if worsening. You also had diverticulitis. There was a small fluid collection which is unlikely to be anything serious or cancerous based on the fact that she had a negative colonoscopy other than diverticula and inflammation a few months ago. This does mandate discussion with your primary care physician when you are better though. Follow-up with your primary care physician in a few days for recheck. I am prescribing a short course of narcotic pain medication for you. These are potentially dangerous and addictive medications that should be used carefully. These medications may constipate you. Take an [id number] stool softener (docusate) twice daily with plenty of water while taking these medications. If you go 24 hours without a bowel movement, take [id number] miralax, per package instructions. Do not drink or drive while taking these medications. If you received narcotic or sedating medications while in the emergency department, do not drive for 24 hours. Store this medication in a safe, secure place and out of reach of children. It is a violation of federal law to give or sell this medication to another person or to use in a manner other than prescribed. The ED will not refill narcotic prescriptions, including prescriptions lost or stolen. To dispose of unwanted medications: 1. [facility] provides a drop box for medication in pill form only (no liquids) 8:00 am to 4:30 p.m. Saturday-Saturday in the lobby of the [facility], [address] [place] [address]. Empty pills into ziplock bag before disposal. Call [phone] for information. 2.[employer] is a free service available to all [facility] residents. Go to [email or web address] Note that many narcotic pain relievers also contain Tylenol/acetaminophen. Please ensure that your total dose of acetaminophen from all sources does not exceed 3 g (3000 mg) per day. Forms: PCP List Discharge Date/Time: 09/21/23 18:52
[2023-09-21] MEDS ORDERED: AZITHROMYCIN INJ 500 MG in SODIUM CHLORIDE 0.9% 250 ML IV STA (15:47)
[2023-09-21] MEDS ORDERED: cefTRIAXone 1 GM VIAL IVP STA (15:47)
[2023-09-21 15:50] LABS: BASOPHILS # (AUTO) 0.1 10^3/uL (0.0-0.1); BASOPHILS % (AUTO) 0.7 %; EOSINOPHILS % (AUTO) 0.1 %; HCT - HEMATOCRIT 43.2 % (42.0-52.0); HGB - HEMOGLOBIN 14.9 g/dL (14.0-18.0); LYMPHOCYTES # (AUTO) 0.9 10^3/uL (1.5-3.5); LYMPHOCYTES % (AUTO) 6.6 %; MEAN CORPUSCULAR HEMOGLOBIN 28.3 pg (27.0-31.0); MEAN CORPUSCULAR HGB CONC 34.5 g/dL (32.0-36.0); MEAN PLATELET VOLUME 9.3 fL (7.4-11.4); MONOCYTES # (AUTO) 0.9 10^3/uL (0.0-1.0); MONOCYTES % (AUTO) 6.8 %; NEUTROPHILS # (AUTO) 10.9 10^3/uL (1.5-6.6); NEUTROPHILS % (AUTO) 84.4 %; PLT - PLATELET COUNT 291 10^3/uL (130-450); RED BLOOD COUNT 5.27 10^6/uL (4.70-6.10); RED CELL DISTRIBUTION WIDTH 13.1 % (12.0-15.0); WHITE BLOOD COUNT 12.9 x10^3/uL (4.8-10.8)
[2023-09-21 16:03] LABS: ALBUMIN 3.4 g/dL (3.2-5.5); ALBUMIN/GLOBULIN RATIO 0.9 (1.0-2.2); BILIRUBIN,TOTAL 0.6 mg/dL (0.2-1.0); CALCIUM 8.9 mg/dL (8.5-10.3); CREATININE 0.7 mg/dL (0.6-1.3); POTASSIUM 3.8 mmol/L (3.5-4.5); TOTAL PROTEIN 7.4 g/dL (6.4-8.9)
--- NOTE | 2023-09-21 16:13 | XRAY Report ---
PROCEDURE: Chest 1 View X-Ray INDICATIONS: dyspnea TECHNIQUE: One view of the chest was acquired. COMPARISON: March 09, 2021, March 04, 2021 FINDINGS: Surgical changes and devices: None. Lungs and pleura: Mild right upper lobe opacity with interstitial prominence. No pneumothorax. No pl eural effusion. Mediastinum: Mediastinal contours appear normal. Heart size is normal. Bones and chest wall: No suspicious bony lesions. Overlying soft tissues appear unremarkable. IMPRESSION: Right airspace opacity concerning for infection with interstitial lung disease not excluded. Reviewed by: West Robles MD on 09/21/2023 3:12 PM LINK Approved by: West Robles MD on 09/21/2023 3:12 PM AKDT Station ID: [id number]
[2023-09-21 16:33] LABS: B. PARAPERTUSSIS- RESP PCR PAN NOT DETECTED; CORONAVIRUS 229E-RESP PCR NOT DETECTED; CORONAVIRUS HKU1-RESP PCR NOT DETECTED; CORONAVIRUS NL63-RESP PCR NOT DETECTED; CORONAVIRUS OC43-RESP PCR NOT DETECTED; HUMAN METAPNEUMOVIRUS NOT DETECTED; INFLUENZA A- RESP PCR PANEL NOT DETECTED; INFLUENZA B - RESP PCR PANEL NOT DETECTED; PARAINFLUENZA VIRUS 1 NOT DETECTED; PARAINFLUENZA VIRUS 2 NOT DETECTED; PARAINFLUENZA VIRUS 3 NOT DETECTED; PARAINFLUENZA VIRUS 4 NOT DETECTED; RHINOVIRUS/ENTEROVIRUS NOT DETECTED; RSV- RESP PCR PANEL NOT DETECTED; SARS-CoV-2 -RESP PCR PANEL NOT DETECTED
[2023-09-21 16:34] LABS: B. PERTUSSIS- RESP PCR PANEL NOT DETECTED; C. PNEUMONIAE- RESP PCR PANEL NOT DETECTED; M. PNEUMONIAE- RESP PCR PANEL NOT DETECTED
[2023-09-21 16:55] LABS: BILIRUBIN,URINE NEGATIVE (NEGATIVE); GLUCOSE, URINE (UA) NEGATIVE (NEGATIVE); KETONES,URINE (UA) NEGATIVE (NEGATIVE); LEUKOCYTE ESTERASE, URINE NEGATIVE (NEGATIVE); NITRITE,URINE NEGATIVE (NEGATIVE); OCCULT BLOOD,URINE TRACE-INTA (NEGATIVE); PH,URINE 6.5 PH (5.0-7.5); PROTEIN,URINE TRACE mg/dL (NEGATIVE); UROBILINOGEN,URINE 0.2 (NORMAL) E.U./dL (NORMAL)
[2023-09-21 16:56] LABS: CLARITY,URINE CLEAR (CLEAR)
[2023-09-21 17:02] LABS: BACTERIA,URINE Rare /HPF (None Seen); RBC,URINE 0-5 /HPF (0-5); SQUAMOUS EPITHELIAL CELL,UR RARE Squamous (<= Few); WBC,URINE 0-3 /HPF (0-3)
[2023-09-21] MEDS ORDERED: iohexoL-300 100 ML VIAL IVP ONE (17:59)
--- NOTE | 2023-09-21 18:19 | CT Report ---
PROCEDURE: ABDOMEN/PELVIS W INDICATIONS: IV only, abd pain CONTRAST: 100ml omni 300 TECHNIQUE: After the administration of intravenous contrast, 5 mm thick sections acquired from the diaphragms to the symphysis. 5 mm thick coronal and sagittal reformats were acquired. For radiation dose reducti on, the following was used: automated exposure control, adjustment of mA and/or kV according to odin ent size. COMPARISON: None FINDINGS: Image quality: Excellent. Lung bases and heart: Unremarkable. Liver: Hepatic steatosis. No mass Gallbladder and biliary tree: No radiopaque stones or wall thickening. No biliary dilation. Spleen: No splenomegaly. Pancreas: No pancreatic ductal dilation. Adrenals: No adrenal nodule. Kidneys and ureters: No hydronephrosis. No renal cystic lesion which requires follow up. No solid mas s. Bowel and peritoneum: No evidence of obstruction. Inflammatory changes along the sigmoid colon with focal wall thickening and questionable pericolonic fluid collection measuring 4.7 x 3 cm. There is only mild inflammatory changes adjacent to this presu med fluid collection, less than expected for an abscess however abscess remains on the differential. No definitive free air however there is numerous air filled colonic diverticula. The appendix is norm al. Lymph nodes: No central or retroperitoneal adenopathy. Vessels: No infrarenal aortic aneurysm. PELVIS Reproductive organs: Unremarkable. Bladder: No abnormal wall thickening, accounting for underdistension. Pelvic lymph nodes: No pelvic adenopathy by size criteria. Bones: No aggressive osseous abnormality. Other: No significant ventral or inguinal hernia. IMPRESSION: Sigmoid acute diverticulitis. Small fluid collection measuring 4.7 cm which may reflect fluid filled diverticula, small abscess, at ypical loop of colon, or possible neoplasm. Recommend ensuring the patient is up-to-date with colonos copy after resolution of symptoms. Reviewed by: West Robles MD on 09/21/2023 5:17 PM LINK Approved by: West Robles MD on 09/21/2023 5:17 PM LINK Station ID: [id number]
[2023-09-21] MEDS ORDERED: oxyCODONE/ACET 5/325 Prepack 4 PO STA (18:28)
[2023-09-21 18:54] VITALS: BP 130/88; O2SAT 96
--- NOTE | 2023-09-22 14:53 | ED Physician Documentation ---
ED Addendum - Addendum Addendum: 09/22/23 14:53 Strep pneumo growing from 2 out of 2 blood cultures and I called patient's and he answered and recommended he return immediately for reevaluation and likely admission and he voiced understanding.
== END 2023-09-21 18:52 | disposition home or self-care (01) ==
LOC: ED 15:19
DX: J18.9 Pneumonia, unspecified organism (principal); K57.32 Diverticulitis of large intestine without perforation or abscess without bleeding; R93.5 Abnormal findings on diagnostic imaging of other abdominal regions, including retroperitoneum; B95.3 Streptococcus pneumoniae as the cause of diseases classified elsewhere; R78.81 Bacteremia; Z87.891 Personal history of nicotine dependence; Z20.822 Contact with and (suspected) exposure to COVID-19
CPT/HCPCS: 36415; 71045; 74177; 80053; 81001; 83605; 85025; 87040; 87181; 87633; 96365; 96375; 96376; 99284; 99285; J1170; Q9967; 87086; 87150

== ENCOUNTER 2023-09-22 15:33 | Inpatient (IN) | payer OTHER ==
[2023-09-22] MEDS ORDERED: AZITHROMYCIN INJ 500 MG in SODIUM CHLORIDE 0.9% 250 ML IV STA (15:34)
[2023-09-22] MEDS ORDERED: cefTRIAXone 2 GM in SODIUM CHLORIDE 0.9% MINIBAG 100 ML IV STA (15:34)
--- NOTE | 2023-09-22 15:59 | ED Physician Documentation ---
History of Present Illness - Stated complaint Stated Complaint: ABNORMAL LABS - Chief complaint Chief Complaint: General - History obtained from History obtained from: Patient - Additonal information Additional information: I saw this 58-year-old gentleman yesterday for right upper lobe pneumonia and uncomplicated diverticulitis. He went home and we called him back because he has 2 out of 2 blood cultures positive for Streptococcus pneumoniae. He feels somewhat better than yesterday and his vital signs are normal. PD PAST MEDICAL HISTORY - Past Medical History Cardiovascular: None Respiratory: Other Neuro: None Endocrine/Autoimmune:  GI: Other : None HEENT: None Psych:  Musculoskeletal: None Derm: None - Past Surgical History Past Surgical History: Yes General: Other Ortho: Knee replacement - Present Medications Home Medications: Ambulatory Orders Medication Instructions Recorded Confirmed Ibuprofen [Motrin] 800 mg PO Q8H PRN #30 tablet 02/04/19 05/29/23 Docusate Sodium 250Mg Capsule 250 mg PO DAILY #10 cap 05/29/23 [Colace 250Mg Capsule] Ketorolac [Toradol] 10 mg PO Q4H PRN #20 tablet 05/29/23 Amox/Clav 875/125 [Augmentin] 1 each PO TID #21 tablet 09/21/23 Doxycycline [Vibramycin] 100 mg PO BID #14 tablet 09/21/23 Oxycodone HCl/Acetaminophen 1 - 2 each PO Q6H PRN #14 tablet 09/21/23 [Percocet 5-325 mg Tablet] - Allergies Allergies/Adverse Reactions: Allergies Allergy/AdvReac Type Severity Reaction Status Date / Time Opioids - Morphine Analogues AdvReac Itching Verified 09/22/23 15:43 - Social History Does the pt smoke?: Yes Smoking Status: Current every day smoker Does the pt drink ETOH?: Yes Does the pt have substance abuse?: Yes - Immunizations Immunizations are current?: Yes - POLST Patient has POLST: No PD ED PE NORMAL - Vitals Vital signs reviewed: Yes - General General: Alert and oriented X 3, No acute distress - HEENT HEENT: PERRL, EOMI - Neck Neck: Supple, no meningeal sign, No bony TTP - Cardiac Cardiac: RRR, No murmur - Respiratory Respiratory: No respiratory distress, Other (Rhonchorous right upper lobe breath sounds, still splinting his breaths but not as much as yesterday.) - Abdomen Abdomen: Non tender - Derm Derm: Normal color, Warm and dry - Neuro Neuro: Alert and oriented X 3, Normal speech - Psych Psych: Normal mood, Normal affect Results - Vitals Vitals: Vital Signs - 24 hr 09/22/23 15:38 Temperature 36.7 C Heart Rate 84 Respiratory 18 Rate Blood Pressure 119/75 O2 Saturation 97 Oxygen O2 Source Room air - Labs Labs: Laboratory Tests 09/22/23 09/22/23 09/22/23 16:01 16:01 16:01 WBC 9.9 RBC 4.82 Hgb 13.8 L Hct 40.5 L MCV 84.0 MCH 28.6 MCHC 34.1 RDW 13.5 Plt Count 299 MPV 9.1 Sodium 135 Potassium 3.9 Chloride 98 L Carbon Dioxide 29 Anion Gap 8.0 BUN 10 Creatinine 0.6 Estimated GFR (MDRD) 139 Glucose 150 H Lactic Acid 1.1 Calcium 8.7 Total Bilirubin 0.4 AST 15 ALT 15 Alkaline Phosphatase 162 H Total Protein 7.0 Albumin 3.2 Globulin 3.8 Albumin/Globulin Ratio 0.8 L PD Medical Decision Making - ED course ED course: 58-year-old gentleman with known right upper lobe pneumonia called back because of 2 out of 2 blood cultures positive for strep pneumoniae and I spoke with Dr. Bullock for admission at 3:58 PM. Work-up here in the emergency department initially demonstrates improvement of his white count down to 9.9, unremarkable CMP and lactate. Chest x-ray showing persistent right upper lobe pneumonia. Departure - Departure Disposition: [facility] DC/Xfer Clinical Impression: Gram-positive bacteremia Pneumonia Qualifiers: Pneumonia type: due to Pneumococcus Laterality: right Lung location: upper lobe of lung Qualified Code(s): J13 - Pneumonia due to Streptococcus pneumoniae Condition: Serious
[2023-09-22 16:08] LABS: BASOPHILS % (AUTO) 0.7 %; EOSINOPHILS % (AUTO) 0.7 %; HCT - HEMATOCRIT 40.5 % (42.0-52.0); HGB - HEMOGLOBIN 13.8 g/dL (14.0-18.0); LYMPHOCYTES % (AUTO) 13.1 %; MEAN CORPUSCULAR HEMOGLOBIN 28.6 pg (27.0-31.0); MEAN CORPUSCULAR HGB CONC 34.1 g/dL (32.0-36.0); MEAN PLATELET VOLUME 9.1 fL (7.4-11.4); MONOCYTES % (AUTO) 8.8 %; NEUTROPHILS % (AUTO) 71.6 %; PLT - PLATELET COUNT 299 10^3/uL (130-450); RED BLOOD COUNT 4.82 10^6/uL (4.70-6.10); RED CELL DISTRIBUTION WIDTH 13.5 % (12.0-15.0); WHITE BLOOD COUNT 9.9 x10^3/uL (4.8-10.8)
--- NOTE | 2023-09-22 16:09 | XRAY Report ---
PROCEDURE: Chest 1 View X-Ray INDICATIONS: Sepsis TECHNIQUE: One view of the chest was acquired. COMPARISON: Radiograph September 21, 2023 FINDINGS: Surgical changes and devices: None. Lungs and pleura: No pleural effusions or pneumothorax. Opacity within the right upper lobe with int erstitial thickening and surrounding ground glass opacity. Mediastinum: Mediastinal contours appear normal. Heart size is normal. Bones and chest wall: No suspicious bony lesions. Overlying soft tissues appear unremarkable. IMPRESSION: Persistent right upper lobe opacity concerning for pneumonia. Reviewed by: West Robles MD on 09/22/2023 3:08 PM LINK Approved by: West Robles MD on 09/22/2023 3:08 PM LINK Station ID: [id number]
[2023-09-22 16:12] LABS: ABNORMAL LYMPHS % (MANUAL) 0 %
[2023-09-22] MEDS ORDERED: ONDANSETRON 4 MG/2 ML VIAL IVP PRN (16:20)
[2023-09-22] MEDS ORDERED: oxyCODONE 5 MG TABLET PO PRN (16:20)
[2023-09-22] MEDS ORDERED: SODIUM CHLORIDE FLUSH 0.9% 10 ML SYRINGE IVP PRN (16:20)
[2023-09-22] MEDS ORDERED: ONDANSETRON ODT 4 MG TABLET TL PRN (16:20)
[2023-09-22 16:25] LABS: ALBUMIN 3.2 g/dL (3.2-5.5); ALBUMIN/GLOBULIN RATIO 0.8 (1.0-2.2); BILIRUBIN,TOTAL 0.4 mg/dL (0.2-1.0); CALCIUM 8.7 mg/dL (8.5-10.3); CREATININE 0.6 mg/dL (0.6-1.3); POTASSIUM 3.9 mmol/L (3.5-4.5)
--- NOTE | 2023-09-22 16:29 | HISTORY & PHYSICAL EXAMINATION ---
Chief Complaint - Chief Complaint Chief Complaint: productive cough, chest pain, sob History of Present Illness - Admitted From Admitted From:: Home/ED - History Obtained From Records Reviewed: Yes History obtained from: Patient, ED sign out - History of Present Illness HPI Comment/Other: A 58 years old male with no chronic medical history, history of smoking, denies current use of tobacco, alcohol or illicit drugs. Presented to the ED initially yesterday on 09/21/2023 for cough, chest pain, shortness of breath for 4 days. Was diagnosed with right upper lobe pneumonia,And uncomplicated diverticulitis, Received IV antibiotics and fluids in the ED, vitals and labs does not meet criteria for hospitalization. He was sent home with Augmentin and doxycycline. Patient Was called back in due to positive blood cultures shows gram-positive cocci in chains. Patient reports he slipped in his bathtub on Saturday, hurt his ribs, he felt so painful, went to see his chiropractor, he was advised to use ice for his pain. He noticed that he cannot have strong cough due to the pain started to feel shortness of breath. In the next couple of days, his rib pain got better, was able to cough, and noted he coughed out thick brown sputum, which he took a picture and showed to me. It appears to be thick purulent, no blood tingeing. Patient felt he was worsening therefore ask his friend to bring him to the ED yesterday Saturday. He also reported a lot of nausea, he even could not brush his teeth. Last night he had a chills. Today in the morning he took the first dose of antibiotics he was prescribed, finally he was able to brush his teeth without feeling nausea. In the ED, patient is afebrile, vitals were within normal limits. Labs show normal WBC. Normal lactic acid level,Mild elevated ALP 160, and glucose 150. Patient was given IV ceftriaxone 2 g, and a dose of Zithromax in the ED. Patient is admitted for further treatment History - Past Medical History Cardiovascular: reports: None Respiratory: reports: Other Neuro: reports: None Endocrine/Autoimmune: GI: reports: Other : reports: None HEENT: reports: None Psych: Musculoskeletal: reports: None Derm: reports: None MRSA Hx?: No - Past Surgical History General: reports: Other Ortho: reports: Knee replacement - Family & Social History Family History Comment/Other: +Hernia in father - Substance History Use: Uses substance without health or social issues: Tobacco - POLST Patient has POLST: No Meds/Allgy - Home Medications Home Medications: Ambulatory Orders Medication Instructions Recorded Confirmed Ibuprofen [Motrin] 800 mg PO Q8H PRN #30 tablet 02/04/19 05/29/23 Docusate Sodium 250Mg Capsule 250 mg PO DAILY #10 cap 05/29/23 [Colace 250Mg Capsule] Ketorolac [Toradol] 10 mg PO Q4H PRN #20 tablet 05/29/23 Amox/Clav 875/125 [Augmentin] 1 each PO TID #21 tablet 09/21/23 Doxycycline [Vibramycin] 100 mg PO BID #14 tablet 09/21/23 Oxycodone HCl/Acetaminophen 1 - 2 each PO Q6H PRN #14 tablet 09/21/23 [Percocet 5-325 mg Tablet] - Allergies Allergies/Adverse Reactions: Allergies Allergy/AdvReac Type Severity Reaction Status Date / Time Opioids - Morphine Analogues AdvReac Itching Verified 09/22/23 15:43 Review of Systems - Constitutional Constitutional: reports: Chills, Malaise, Poor appetite. denies: Fever - Eyes Eyes: denies: Vision loss - Ears, Nose & Throat Ears, Nose & Throat: denies: Sore throat - Cardiovascular Cariovascular: reports: Chest pain. denies: Palpitations - Respiratory Respiratory: reports: Cough, Sputum production, SOB at rest, Pleuritic pain. denies: Wheezing, Hemoptysis - Gastrointestinal Gastrointestinal: reports: Nausea, Vomiting. denies: Abdominal pain, Diarrhea - Genitourinary Genitourinary: denies: Dysuria, Frequency, Urgency - Musculoskeletal Musculoskeletal: denies: Muscle pain, Back pain - Neurological Neurological: reports: General weakness. 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 negative: Wheezes, Rales Cardiovascular: positive: Regular rate & rhythm, No murmur Abdomen: positive: Non-tender, No distention Back: positive: Nml inspection Skin: positive: Color nml, No rash, Warm, Dry Extremities: positive: Non-tender, Full ROM, No pedal edema Neurologic/Psychiatric: positive: Oriented x3, CN's nml (2-12) Sepsis Event Note (H) - Evaluation Current Stage of Sepsis: Ruled out Conclusion/Plan - Problem List (1) Gram-positive bacteremia Conclusion/Plan: Likely the source is pneumonia with evidence of cough, productive sputum, shortness of breath, pleuritic chest pain, Right upper lobe pneumonia reported on the chest x-ray Another source may be of acute diverticulitis Likely its strep pneumo bacteremia, check HIV, U tox and echocardiogram to get a baseline valvular condition Give IV ceftriaxone 1 g twice daily, likely need 8 to 10 days treatment course Repeat blood culture obtained in the ED on 09/22/2023 (2) Pneumonia Conclusion/Plan: Shortness breath, chest pain, productive cough. Chest x-ray shows right upper lobe pneumonia. Give ceftriaxone Qualifiers: Pneumonia type: due to Pneumococcus Laterality: right Lung location: upper lobe of lung Qualified Code(s): J13 - Pneumonia due to Streptococcus pneumoniae - Lab Results Lab results reviewed: Yes Fish Bones: 09/22/23 16:01 09/22/23 16:01 - Diagnostic Imaging Results Diagnostic Imaging Results: positive: Final report reviewed - Other Other Results/Comments: Blood culture obtained on 09/21/2023 shows gram-positive cocci in chains
[2023-09-22 16:38] LABS: BAND NEUTROPHILS % (MANUAL) 4 %; EOSINOPHILS # (MANUAL) 0.3 10^3/uL (0-0.7); LYMPHOCYTES # (MANUAL) 1.3 10^3/uL (1.5-3.5); LYMPHOCYTES % (MANUAL) 1 %; METAMYELOCYTES % (MANUAL) 1 %; MONOCYTES # (MANUAL) 0.9 10^3/uL (0.0-1.0); NEUTROPHILS # (MANUAL) 7.3 10^3/uL (1.5-6.6); REACTIVE LYMPHS % (MANUAL) 12 %
[2023-09-22 16:39] LABS: DIFFERENTIAL COMMENT MANUAL DIFFERENTIAL; PLATELET ESTIMATE, MANUAL NORMAL (130-450,000) (NORMAL); PLATELET MORPHOLOGY NORMAL APPEARANCE (NORMAL); RBC MORPHOLOGY (MULTIPLE) NORMAL APPEARANCE (NORMAL); WBC MORPHOLOGY (MULTIPLE) 3+ TOXIC GRANULATION (NORMAL)
[2023-09-22] MEDS ORDERED: SODIUM CHLORIDE 0.9% 1,000 ML IV SCH (17:00)
[2023-09-22] MEDS: ACETAMINOPHEN 1,000 MG/100 ML 1,000 MG/100 ML BAG IV PRN (17:59)
[2023-09-22] MEDS: HYDROmorphone 2 MG TABLET PO PRN (18:14)
[2023-09-22] MEDS ORDERED: guaiFENesin/DEXTROMETHORPHAN 10 ML UDC PO PRN (18:16)
[2023-09-22] MEDS: SODIUM CHLORIDE FLUSH 0.9% 10 ML SYRINGE IVP SCH (18:20)
[2023-09-22 18:39] LABS: MUDS CUTOFF CONCENTRATIONS CUTOFF CONC BELOW:
[2023-09-22 18:41] LABS: BILIRUBIN,URINE NEGATIVE (NEGATIVE); CLARITY,URINE CLEAR (CLEAR); GLUCOSE, URINE (UA) NEGATIVE (NEGATIVE); KETONES,URINE (UA) NEGATIVE (NEGATIVE); LEUKOCYTE ESTERASE, URINE NEGATIVE (NEGATIVE); NITRITE,URINE NEGATIVE (NEGATIVE); OCCULT BLOOD,URINE NEGATIVE (NEGATIVE); PH,URINE 6.5 PH (5.0-7.5); PROTEIN,URINE TRACE mg/dL (NEGATIVE); UROBILINOGEN,URINE 2 E.U./dL (NORMAL)
[2023-09-22 18:56] LABS: AMPHETAMINE SCREEN,URINE NEGATIVE (NEGATIVE); BARBITURATE SCREEN,UR NEGATIVE (NEGATIVE); BENZODIAZEPINES SCREEN, URINE NEGATIVE (NEGATIVE); COCAINE SCREEN URINE NEGATIVE (NEGATIVE); METHADONE SCREEN, URINE NEGATIVE (NEGATIVE); METHAMPHETAMINES SCREEN, URINE NEGATIVE (NEGATIVE); OPIATE SCREEN, URINE NEGATIVE (NEGATIVE); THC CANNABINOID SCREEN, URINE POSITIVE (NEGATIVE); TRICYCLIC ANTIDEPRESSANT,URINE NEGATIVE (NEGATIVE)
[2023-09-22 18:57] LABS: OXYCODONE SCREEN, URINE POSITIVE (NEGATIVE); PROPOXYPHENE SCREEN, URINE NEGATIVE (NEGATIVE)
[2023-09-22 19:00] LABS: BACTERIA,URINE Rare /HPF (None Seen); RBC,URINE 0-5 /HPF (0-5); SQUAMOUS EPITHELIAL CELL,UR NONE SEEN (<= Few); WBC,URINE 0-3 /HPF (0-3)
[2023-09-23] MEDS: ACETAMINOPHEN 1,000 MG/100 ML 1,000 MG/100 ML BAG IV PRN (00:20)
[2023-09-23] MEDS: HYDROmorphone 2 MG TABLET PO PRN ×3 (00:20→19:03)
[2023-09-23] MEDS: SODIUM CHLORIDE FLUSH 0.9% 10 ML SYRINGE IVP SCH ×3 (00:57→17:53)
[2023-09-23] MEDS ORDERED: HYDROmorphone 2 MG/ML VIAL IVP PRN (00:58)
[2023-09-23 06:04] LABS: BASOPHILS % (AUTO) 0.5 %; EOSINOPHILS % (AUTO) 1.6 %; HCT - HEMATOCRIT 37.8 % (42.0-52.0); HGB - HEMOGLOBIN 12.6 g/dL (14.0-18.0); MEAN CORPUSCULAR HEMOGLOBIN 28.4 pg (27.0-31.0); MEAN CORPUSCULAR HGB CONC 33.3 g/dL (32.0-36.0); MEAN CORPUSCULAR VOLUME 85.1 fL (80.0-94.0); MEAN PLATELET VOLUME 9.6 fL (7.4-11.4); MONOCYTES % (AUTO) 6.8 %; NEUTROPHILS % (AUTO) 70.2 %; PLT - PLATELET COUNT 325 10^3/uL (130-450); RED BLOOD COUNT 4.44 10^6/uL (4.70-6.10); RED CELL DISTRIBUTION WIDTH 13.4 % (12.0-15.0); WHITE BLOOD COUNT 8.1 x10^3/uL (4.8-10.8)
[2023-09-23 06:10] LABS: CALCIUM 8.2 mg/dL (8.5-10.3); CREATININE 0.6 mg/dL (0.6-1.3); CRP - C-REACTIVE PROTEIN 25.7 mg/dL (<0.5); POTASSIUM 3.4 mmol/L (3.5-4.5)
[2023-09-23 07:34] LABS: SLIDE REVIEW? Indicated
[2023-09-23] MEDS ORDERED: diphenhydrAMINE INJ 50 MG/ML VIAL IVP PRN (07:50)
[2023-09-23] MEDS ORDERED: KETOROLAC 15 MG/ML VIAL IVP STA (07:52)
--- NOTE | 2023-09-23 07:54 | PROVIDER PROGRESS NOTE ---
Assessment/Plan - Problem List (1) Gram-positive bacteremia Assessment/Plan: Improving, CRP is downtrending Overall patient feels better Preliminary blood culture reports its strep pneumo Echo ordered to check valvular baseline status HIV ordered for screening any potential immunocompromise condition Repeat culture was collected on 09/22/2023, once repeat culture shows negative, we can consider place PICC line, due to strep bacteremia likely need 8 to 10 days IV antibiotics Due to drug rash, likely is from ceftriaxone. Discontinue the ceftriaxone Started patient on levofloxacin. Await for blood culture sensitivity report, readjust antibiotics based on sensitivity (2) Drug rash Assessment/Plan: Patient developed small red rash itchy started on chest and then back down to the upper legs Likely is due to ceftriaxone, stop ceftriaxone Give Benadryl, Solu-Medrol 40 mg once, topical high intensity steroid Monitoring his rash development Put rash pictures on chart (3) Pneumonia Qualifiers: Pneumonia type: due to Pneumococcus Laterality: right Lung location: upper lobe of lung Qualified Code(s): J13 - Pneumonia due to Streptococcus pneumoniae Assessment/Plan: Improving, cough, chest pain are much better Continue IV antibiotics (4) Diverticulitis of gastrointestinal tract Assessment/Plan: Abdominal pain is slightly better, add on Flagyl today - Current Meds Current Meds: Current Medications Generic Name Dose Route Start Last Admin Trade Name Freq PRN Reason Stop Dose Admin Hydromorphone HCl 2 mg 09/22/23 17:26 09/23/23 00:20 Hydromorphone 2 Mg Tablet PO 2 mg Q6HR PRN Administration Severe Pain (Level 7-10) Hydromorphone HCl 2 mg 09/23/23 00:58 09/23/23 04:13 Hydromorphone 2 Mg/Ml Vial IVP 09/24/23 00:57 2 mg ONCE PRN Administration Severe Pain (Level 7-10) Acetaminophen 1,000 mg in 100 mls @ 400 mls/hr 09/22/23 17:25 09/23/23 00:35 Acetaminophen IV Infused Q6HR PRN Infusion Moderate Pain (Level 4-6) Ondansetron HCl 4 mg 09/22/23 16:20 09/23/23 04:13 Ondansetron 4 Mg/2 Ml Vial IVP 4 mg Q6HR PRN Administration Nausea / Vomiting Sodium Chloride 10 ml 09/22/23 17:00 09/23/23 00:57 Sodium Chloride Flush 0.9% 10 Ml Syringe IVP Not Given 0100,0900,1700 ALISON - Lab Result Lab results reviewed: Yes Fish Bone Diagrams: 09/23/23 05:16 09/23/23 05:16 - Additional Planning Condition/Complexity: Improved My Orders: My Active Orders 09/22/23 16:05 HIV AB/p24 AG WITH REFLEX [REFLAB] Routine 09/22/23 Dinner Regular Diet [DIET] 09/22/23 16:20 Activity Orders [RC] Q2HR IO [RC] IOSHIFT Incentive Spirometry - RT [RC] TID Initiate Bowel Care Protocol [RC] .protocol Initiate Line Care Protocol [RC] QSHIFT Initiate Personal Care Protoco [RC] .protocol Oxygen Therapy [RC] .PRN Vital Signs [RC] 0800,1600,0000 Acetaminophen [Tylenol] 650 mg PO Q4HR PRN Ondansetron Inj [Zofran Inj] 4 mg IVP Q6HR PRN Ondansetron Odt [Zofran Odt] 4 mg TL Q6HR PRN Sodium Chloride Flush 0.9% [Normal Saline Flush 0.9%] 10 ml IVP PRN PRN Code Status [OTHERS] Routine Condition of Patient [OTHERS] Routine DVT Prophylaxis [OTHERS] Routine 09/22/23 17:00 Sodium Chloride Flush 0.9% [Normal Saline Flush 0.9%] 10 ml IVP 0100,0900,1700 09/22/23 17:25 Acetaminophen 1,000 mg/100 ml [Acetaminophen] 1,000 mg in 100 ml IV Q6HR 09/22/23 17:26 HYDROmorphone [Dilaudid] 2 mg PO Q6HR PRN 09/23/23 05:16 CBC [CBC - COMP BLD CT W/AUTO DIFF] [HEME] DAILYLAB 09/23/23 07:12 Echo Complete w/Bubble Study [ECHO] Routine 09/23/23 07:50 diphenhydrAMINE INJ [Benadryl Inj] 25 mg IVP Q6H PRN 09/23/23 07:52 Ketorolac Inj (15Mg) [Toradol Inj (15Mg)] 15 mg IVP ONCE STA 09/23/23 08:00 guaiFENesin/DEXTROMETHORPHAN [Robitussin Dm] 10 ml PO TID 09/23/23 09:00 Enoxaparin [Lovenox] 40 mg SUBQ DAILY cefTRIAXone [Rocephin] 2 gm Sodium Chloride 0.9% Minibag [Normal Saline 0.9% Minibag] 100 ml IV DAILY 09/24/23 05:00 BMP - BASIC METABOLIC PANEL [CHEM] DAILYLAB CBC [CBC - COMP BLD CT W/AUTO DIFF] [HEME] DAILYLAB 09/25/23 05:00 BMP - BASIC METABOLIC PANEL [CHEM] DAILYLAB CBC [CBC - COMP BLD CT W/AUTO DIFF] [HEME] DAILYLAB 09/26/23 05:00 BMP - BASIC METABOLIC PANEL [CHEM] DAILYLAB CBC [CBC - COMP BLD CT W/AUTO DIFF] [HEME] DAILYLAB 09/27/23 05:00 BMP - BASIC METABOLIC PANEL [CHEM] DAILYLAB CBC [CBC - COMP BLD CT W/AUTO DIFF] [HEME] DAILYLAB Plan Discussed with:: Patient Time Spent: 31-60 minutes Subjective - Subjective Patient Reports: Feeling Better (However in the afternoon he started to develop rash, itchy Does not feel well had diarrhea, nausea), Diarrhea Objective Vital Signs: Vital Signs - 24 hr 09/22/23 09/22/23 09/22/23 15:38 16:45 23:40 Temperature 36.7 C 36.8 C 36.8 C Heart Rate 84 Heart Rate [ 79 68 Brachial] Respiratory 18 20 14 Rate Blood Pressure 119/75 Blood Pressure 127/75 113/78 [Right Brachial artery] O2 Saturation 97 96 92 Oxygen O2 Source Room air I&O (Last 24 Hrs): Intake and Output Totals x24h 09/21/23 09/22/23 09/23/23 23:59 23:59 23:59 Intake Total 1210 100 Output Total 250 Balance 960 100 General: Alert, Oriented x3, Mild distress HEENT: PERRLA, EOMI Neck: Supple, No JVD Neuro: Alert, Non Focal Cardiovascular: Regular rate, Normal S1, Normal S2 Respiratory: Chest non-tender, No respiratory distress, Rales, Rhonchi (Right upper lobe) Abdomen: Normal bowel sounds, Soft Comments/Notes: Red, morbilliform rash, itching chest, back and upper thigh - Results Results: Laboratory Results WBC 8.1 x10^3/uL (4.8-10.8) 09/23/23 05:16 RBC 4.44 10^6/uL (4.70-6.10) L 09/23/23 05:16 Hgb 12.6 g/dL (14.0-18.0) L 09/23/23 05:16 Hct 37.8 % (42.0-52.0) L 09/23/23 05:16 MCV 85.1 fL (80.0-94.0) 09/23/23 05:16 MCH 28.4 pg (27.0-31.0) 09/23/23 05:16 MCHC 33.3 g/dL (32.0-36.0) 09/23/23 05:16 RDW 13.4 % (12.0-15.0) 09/23/23 05:16 Plt Count 325 10^3/uL (130-450) 09/23/23 05:16 MPV 9.6 fL (7.4-11.4) 09/23/23 05:16 Neut # (Auto) Not Reportable 09/22/23 16:01 Lymph # (Auto) Not Reportable 09/22/23 16:01 [place] # (Auto) Not Reportable 09/22/23 16:01 Eos # (Auto) Not Reportable 09/22/23 16:01 Baso # (Auto) Not Reportable 09/22/23 16:01 Absolute Nucleated RBC Not Reportable 09/22/23 16:01 Total Counted 100 09/22/23 16:01 Band Neuts % (Manual) 4 % (0-10) 09/22/23 16:01 Reactive Lymphs % (Man) 12 % 09/22/23 16:01 Abnorm Lymph % (Manual) 0 % 09/22/23 16:01 Metamyelocytes % 1 % (-0) H 09/22/23 16:01 Nucleated RBC % Not Reportable 09/22/23 16:01 Neutrophils # (Manual) 7.3 10^3/uL (1.5-6.6) H 09/22/23 16:01 Lymphocytes # (Manual) 1.3 10^3/uL (1.5-3.5) L 09/22/23 16:01 Monocytes # (Manual) 0.9 10^3/uL (0.0-1.0) 09/22/23 16:01 Eosinophils # (Manual) 0.3 10^3/uL (0-0.7) 09/22/23 16:01 Basophils # (Manual) 0.0 10^3/uL (0-0.1) 09/22/23 16:01 Differential Comment MANUAL DIFFERENTIAL 09/22/23 16:01 Manual Slide Review Indicated 09/23/23 05:16 WBC Morphology 3+ TOXIC GRANULATION (NORMAL) 09/22/23 16:01 Platelet Estimate NORMAL (130-450,000) (NORMAL) 09/22/23 16:01 Platelet Morphology NORMAL APPEARANCE (NORMAL) 09/22/23 16:01 RBC Morph Micro Appear NORMAL APPEARANCE (NORMAL) 09/22/23 16:01 Sodium 138 mmol/L (135-145) 09/23/23 05:16 Potassium 3.4 mmol/L (3.5-4.5) L 09/23/23 05:16 Chloride 103 mmol/L (101-111) 09/23/23 05:16 Carbon Dioxide 29 mmol/L (21-32) 09/23/23 05:16 Anion Gap 6.0 (6-13) 09/23/23 05:16 BUN 5 mg/dL (6-20) L 09/23/23 05:16 Creatinine 0.6 mg/dL (0.6-1.3) 09/23/23 05:16 Estimated GFR (MDRD) 139 (>89) 09/23/23 05:16 Glucose 119 mg/dL (74-104) H 09/23/23 05:16 Lactic Acid 1.1 mmol/L (0.5-2.2) 09/22/23 16:01 Calcium 8.2 mg/dL (8.5-10.3) L 09/23/23 05:16 Total Bilirubin 0.4 mg/dL (0.2-1.0) 09/22/23 16:01 AST 15 IU/L (10-42) 09/22/23 16:01 ALT 15 IU/L (10-60) 09/22/23 16:01 Alkaline Phosphatase 162 IU/L (42-121) H 09/22/23 16:01 C-Reactive Protein 25.7 mg/dL (<0.5) H 09/23/23 05:16 Total Protein 7.0 g/dL (6.4-8.9) 09/22/23 16:01 Albumin 3.2 g/dL (3.2-5.5) 09/22/23 16:01 Globulin 3.8 g/dL (2.1-4.2) 09/22/23 16:01 Albumin/Globulin Ratio 0.8 (1.0-2.2) L 09/22/23 16:01 Urine Color YELLOW 09/22/23 18:20 Urine Clarity CLEAR (CLEAR) 09/22/23 18:20 Urine pH 6.5 PH (5.0-7.5) 09/22/23 18:20 Ur Specific [place] 1.010 (1.002-1.030) 09/22/23 18:20 Urine Protein TRACE mg/dL (NEGATIVE) 09/22/23 18:20 Urine Glucose (UA) NEGATIVE mg/dL (NEGATIVE) 09/22/23 18:20 Urine Ketones NEGATIVE mg/dL (NEGATIVE) 09/22/23 18:20 Urine Occult Blood NEGATIVE (NEGATIVE) 09/22/23 18:20 Urine Nitrite NEGATIVE (NEGATIVE) 09/22/23 18:20 Urine Bilirubin NEGATIVE (NEGATIVE) 09/22/23 18:20 Urine Urobilinogen 2 E.U./dL (NORMAL) H 09/22/23 18:20 Ur Leukocyte Esterase NEGATIVE (NEGATIVE) 09/22/23 18:20 Urine RBC 0-5 /HPF (0-5) 09/22/23 18:20 Urine WBC 0-3 /HPF (0-3) 09/22/23 18:20 Ur Squamous Epith Cells NONE SEEN (<= Few) 09/22/23 18:20 Urine Bacteria Rare /HPF (None Seen) 09/22/23 18:20 Urine Culture Comments NOT INDICATED 09/22/23 18:20 Urine Opiates Screen NEGATIVE (NEGATIVE) 09/22/23 18:20 Ur Oxycodone Screen POSITIVE (NEGATIVE) H 09/22/23 18:20 Urine Methadone Screen NEGATIVE (NEGATIVE) 09/22/23 18:20 Ur Propoxyphene Screen NEGATIVE (NEGATIVE) 09/22/23 18:20 Ur Barbiturates Screen NEGATIVE (NEGATIVE) 09/22/23 18:20 Ur Tricyclics Screen NEGATIVE (NEGATIVE) 09/22/23 18:20 Ur Phencyclidine Scrn NEGATIVE (NEGATIVE) 09/22/23 18:20 Ur Amphetamine Screen NEGATIVE (NEGATIVE) 09/22/23 18:20 U Methamphetamines Scrn NEGATIVE (NEGATIVE) 09/22/23 18:20 U Benzodiazepines Scrn NEGATIVE (NEGATIVE) 09/22/23 18:20 Urine Cocaine Screen NEGATIVE (NEGATIVE) 09/22/23 18:20 U Cannabinoids Screen POSITIVE (NEGATIVE) H 09/22/23 18:20 - Procedures Procedures: Procedures EXCISION OF HEMORRHOIDAL PLEXUS, OPEN APPROACH (07/20/16) EXCISION OF HEMORRHOIDAL PLEXUS, PERCUTANEOUS APPROACH (05/29/23) EXCISION OF SIGMOID COLON, ENDO, DIAGN (05/29/23) SUPPLEMENT R FEMORAL REGION WITH SYNTH SUB, OPEN APPROACH (11/09/19) Sepsis Event Note (H) - Evaluation Current Stage of Sepsis: Ruled out Current Medications - Current Medications Current Medications: Active Medications Acetaminophen (Acetaminophen 325 Mg Tablet) 650 mg PO Q4HR PRN PRN Reason: Pain 1 to 4, or Fever Last Admin: 09/23/23 13:00 Dose: 650 mg Diphenhydramine HCl (Diphenhydramine Inj 50 Mg/Ml Vial) 25 mg IVP Q6H PRN PRN Reason: Allergy Symptoms Enoxaparin Sodium (Enoxaparin 40 Mg/0.4 Ml Syringe) 40 mg SUBQ DAILY [facility] Last Admin: 09/23/23 08:18 Dose: Not Given Guaifenesin (Guaifenesin/Dextromethorphan 10 Ml Udc) 10 ml PO TID ALISON Last Admin: 09/23/23 13:45 Dose: Not Given Hydromorphone HCl (Hydromorphone 2 Mg Tablet) 2 mg PO Q6HR PRN PRN Reason: Severe Pain (Level 7-10) Last Admin: 09/23/23 13:08 Dose: 2 mg Hydromorphone HCl (Hydromorphone 2 Mg/Ml Vial) 2 mg IVP ONCE PRN PRN Reason: Severe Pain (Level 7-10) Stop: 09/24/23 00:57 Last Admin: 09/23/23 04:13 Dose: 2 mg Hydroxyzine Pamoate (Hydroxyzine Pamoate 25 Mg Capsule) 25 mg PO TID PRN PRN Reason: Anxiety Last Admin: 09/23/23 13:07 Dose: 25 mg Acetaminophen (Acetaminophen) 1,000 mg in 100 mls @ 400 mls/hr IV Q6HR PRN PRN Reason: Moderate Pain (Level 4-6) Last Infusion: 09/23/23 00:35 Dose: Infused Metronidazole (Flagyl 500 Mg/100 Ml) 500 mg in 100 mls @ 100 mls/hr IV Q8H [facility] Last Infusion: 09/23/23 12:10 Dose: Infused Levofloxacin (Levaquin 750 Mg/150 Ml) 750 mg in 150 mls @ 100 mls/hr IV Q24H [facility] Lactobacillus Rhamnosus (Lactobacillus Rhamnosus Gg Capsule) 1 cap PO DAILY ALISON Multivitamins/Minerals (Multivitamin W/Minerals Tablet) 1 tab PO DAILYWM [facility] Ondansetron HCl (Ondansetron Odt 4 Mg Tablet) 4 mg TL Q6HR PRN PRN Reason: Nausea / Vomiting Ondansetron HCl (Ondansetron 4 Mg/2 Ml Vial) 4 mg IVP Q6HR PRN PRN Reason: Nausea / Vomiting Last Admin: 09/23/23 04:13 Dose: 4 mg Sodium Chloride (Sodium Chloride Flush 0.9% 10 Ml Syringe) 10 ml IVP PRN PRN PRN Reason: NEEDED PER PROVIDER ORDERS Sodium Chloride (Sodium Chloride Flush 0.9% 10 Ml Syringe) 10 ml IVP 0100,0900,1700 [facility] Last Admin: 09/23/23 08:10 Dose: 10 ml Triamcinolone Acetonide (Triamcinolone 0.5% Cream 15 Gm Tube) 1 applic TOP BID [facility] Acetaminophen [Tylenol] 1,000 mg PO Q6H PRN 09/23/23 Ibuprofen [Advil] 400 mg PO Q8H PRN 09/23/23 Neomycin [place]/Bacitrac Zn/Poly [Neosporin Ointment] 1 applic TOP DAILY PRN 09/23/23
[2023-09-23 07:59] LABS: ABNORMAL LYMPHS % (MANUAL) 0 %
[2023-09-23 08:03] LABS: BAND NEUTROPHILS % (MANUAL) 5 %; DIFFERENTIAL COMMENT MANUAL DIFFERENTIAL; EOSINOPHILS # (MANUAL) 0.2 10^3/uL (0-0.7); LYMPHOCYTES # (MANUAL) 1.1 10^3/uL (1.5-3.5); LYMPHOCYTES % (MANUAL) 13 %; METAMYELOCYTES % (MANUAL) 1 %; MONOCYTES # (MANUAL) 0.8 10^3/uL (0.0-1.0); NEUTROPHILS # (MANUAL) 5.9 10^3/uL (1.5-6.6); PLATELET ESTIMATE, MANUAL NORMAL (130-450,000) (NORMAL); PLATELET MORPHOLOGY NORMAL APPEARANCE (NORMAL); RBC MORPHOLOGY (MULTIPLE) NORMAL APPEARANCE (NORMAL)
[2023-09-23] MEDS: guaiFENesin/DEXTROMETHORPHAN 10 ML UDC PO SCH ×3 (08:18→21:34)
[2023-09-23] MEDS: ENOXAPARIN 40 MG/0.4 ML SYRINGE SUBQ SCH (08:18)
[2023-09-23] MEDS ORDERED: cefTRIAXone 2 GM in SODIUM CHLORIDE 0.9% MINIBAG 100 ML IV SCH (09:00)
[2023-09-23] MEDS: metroNIDAZOLE 500 MG/100 ML 500 MG/100 ML BAG IV SCH ×2 (11:06→19:09)
--- NOTE | 2023-09-23 12:47 | PHARMACY PROGRESS NOTE ---
- Best Possible Medication History Admit Date and Time: 09/22/23 1620 Processed by: Pharmacy Medication History completed: Yes Patient Interview: Completed Secondary Source(s): Insurance records Augmentin, doxycycline, and Percocet were prescribed 10/28 PM by ER physician. As the person ultimately responsible for medication therapy, providers are able to order a medication from an existing home medication list in [facility] via the "Reconcile Routine" prior to Confirmation of that medication by software support engineer. Such practice is discouraged except when the physician, in their clinical judgment, deems that a medical need exists for a medication without regard to previous use.
[2023-09-23] MEDS ORDERED: hydrOXYzine PAMOATE 25 MG CAPSULE PO PRN (12:53)
[2023-09-23] MEDS ORDERED: diphenhydrAMINE INJ 50 MG/ML VIAL IVP ONE (13:00)
[2023-09-23] MEDS: ACETAMINOPHEN 325 MG TABLET PO PRN (13:00)
[2023-09-23] MEDS ORDERED: methylPREDNISolone SUCCINATE 40 MG/ML VIAL IVP ONE (14:00)
[2023-09-23] MEDS ORDERED: TRIAMCINOLONE 0.5% CREAM 15 GM TUBE TOP SCH (17:37)
[2023-09-23] MEDS: TRIAMCINOLONE 0.5% CREAM 15 GM TUBE TOP SCH ×2 (17:52→21:33)
[2023-09-23] MEDS: MULTIVITAMIN W/MINERALS TABLET PO SCH (17:52)
[2023-09-23] MEDS: traZODone 50 MG TABLET PO PRN (21:32)
[2023-09-24] MEDS: ACETAMINOPHEN 325 MG TABLET PO PRN ×4 (00:48→21:39)
[2023-09-24] MEDS: SODIUM CHLORIDE FLUSH 0.9% 10 ML SYRINGE IVP SCH ×4 (00:50→20:26)
[2023-09-24 03:09] LABS: HIV SCREEN 4TH GENERATION Non Reactive (Non Reactive)
[2023-09-24] MEDS: metroNIDAZOLE 500 MG/100 ML 500 MG/100 ML BAG IV SCH ×3 (03:11→19:04)
[2023-09-24 06:00] LABS: BASOPHILS % (AUTO) 0.5 %; EOSINOPHILS % (AUTO) 0.2 %; HCT - HEMATOCRIT 38.6 % (42.0-52.0); HGB - HEMOGLOBIN 12.9 g/dL (14.0-18.0); LYMPHOCYTES % (AUTO) 15.1 %; MEAN CORPUSCULAR HEMOGLOBIN 28.2 pg (27.0-31.0); MEAN CORPUSCULAR HGB CONC 33.4 g/dL (32.0-36.0); MEAN CORPUSCULAR VOLUME 84.5 fL (80.0-94.0); MEAN PLATELET VOLUME 9.4 fL (7.4-11.4); MONOCYTES % (AUTO) 2.5 %; NEUTROPHILS % (AUTO) 77.2 %; PLT - PLATELET COUNT 418 10^3/uL (130-450); RED BLOOD COUNT 4.57 10^6/uL (4.70-6.10); RED CELL DISTRIBUTION WIDTH 13.7 % (12.0-15.0); WHITE BLOOD COUNT 10.8 x10^3/uL (4.8-10.8)
[2023-09-24] MEDS: guaiFENesin/DEXTROMETHORPHAN 10 ML UDC PO SCH ×2 (06:08→15:10)
[2023-09-24 06:11] LABS: ABNORMAL LYMPHS % (MANUAL) 0 %
[2023-09-24 06:12] LABS: CALCIUM 9.2 mg/dL (8.5-10.3); CREATININE 0.6 mg/dL (0.6-1.3); POTASSIUM 4.4 mmol/L (3.5-4.5)
[2023-09-24 06:41] LABS: BAND NEUTROPHILS % (MANUAL) 9 %; EOSINOPHILS # (MANUAL) 0.2 10^3/uL (0-0.7); LYMPHOCYTES # (MANUAL) 1.1 10^3/uL (1.5-3.5); LYMPHOCYTES % (MANUAL) 10 %; MONOCYTES # (MANUAL) 0.1 10^3/uL (0.0-1.0); NEUTROPHILS # (MANUAL) 9.4 10^3/uL (1.5-6.6); RBC MORPHOLOGY (MULTIPLE) NORMAL APPEARANCE (NORMAL)
[2023-09-24 06:42] LABS: DIFFERENTIAL COMMENT MANUAL DIFFERENTIAL; PLATELET ESTIMATE, MANUAL NORMAL (130-450,000) (NORMAL)
[2023-09-24] MEDS: LACTOBACILLUS RHAMNOSUS GG CAPSULE PO SCH (08:17)
[2023-09-24] MEDS: TRIAMCINOLONE 0.5% CREAM 15 GM TUBE TOP SCH ×2 (08:17→21:42)
[2023-09-24] MEDS: MULTIVITAMIN W/MINERALS TABLET PO SCH (08:17)
[2023-09-24] MEDS: ENOXAPARIN 40 MG/0.4 ML SYRINGE SUBQ SCH (08:18)
[2023-09-24] MEDS ORDERED: levoFLOXacin 750 MG/150 ML 750 MG/150 ML BAG IV SCH (09:00)
[2023-09-24] MEDS: CHOLECALCIFEROL 25 MCG TABLET PO SCH (16:56)
--- NOTE | 2023-09-24 17:56 | PROVIDER PROGRESS NOTE ---
Assessment/Plan - Problem List (1) Bacteremia due to Streptococcus pneumoniae Assessment/Plan: Improving, CRP is downtrending, Overall patient feels better Blood culture report its strep pneumo and is pansensitive Echo done today, to check valvular baseline status and is neg for vegetations HIV ordered for screening any potential immunocompromise condition and is still pending Repeat culture was collected on 09/22/2023 which is neg to date Due to drug rash, we discontinued the ceftriaxone and started patient on levofloxacin. Plan: Since he has no endocarditis, since the strep pneumoniae is pansensitive, and since levofloxacin has a good bioavailability when given orally, we will plan to discharge him home tomorrow on p.o. levofloxacin for a 10 to 14-day total course of antibx. (2) Drug rash Assessment/Plan: On 09/23, patient developed small red rash itchy started on chest and then back down to the upper legs Likely was due to ceftriaxone, so we stopped ceftriaxone, gave Benadryl, Solu- Medrol 40 mg once, topical high intensity steroid. Put rash pictures on chart Plan: Monitoring his rash development (3) Pneumonia Qualifiers: Pneumonia type: due to Pneumococcus Laterality: right Lung location: upper lobe of lung Qualified Code(s): J13 - Pneumonia due to Streptococcus pneumoniae Assessment/Plan: Improving, cough, chest pain are better but he still is splinting and needing pain meds Plan: Continue IV antibiotics We will order Mucinex for expectoration We will order pain meds for pleuritic pain and he needs to do incentive spirometer. I told pt this plan (4) Vitamin D deficiency Assessment/Plan: As per labs Plan: Will order vit D suppl (5) Diverticulitis of gastrointestinal tract Assessment/Plan: Abdominal pain is better after Flagyl added Plan: We will continue a 5-day total course with this - Current Meds Current Meds: Current Medications Generic Name Dose Route Start Last Admin Trade Name Freq PRN Reason Stop Dose Admin Acetaminophen 650 mg 09/22/23 16:20 09/24/23 16:56 Acetaminophen 325 Mg Tablet PO 650 mg Q4HR PRN Administration Pain 1 to 4, or Fever Cholecalciferol 50 mcg 09/24/23 17:00 09/24/23 16:56 Cholecalciferol 25 Mcg Tablet PO 50 mcg DAILY ALISON Administration Diphenhydramine HCl 25 mg 09/23/23 07:50 09/23/23 19:04 Diphenhydramine Inj 50 Mg/Ml Vial IVP 25 mg Q6H PRN Administration Allergy Symptoms Enoxaparin Sodium 40 mg 09/23/23 09:00 09/24/23 08:18 Enoxaparin 40 Mg/0.4 Ml Syringe SUBQ Not Given DAILY ALISON Guaifenesin 10 ml 09/23/23 08:00 09/24/23 15:10 Guaifenesin/Dextromethorphan 10 Ml Udc PO Not Given TID ALISON Hydromorphone HCl 2 mg 09/22/23 17:26 09/23/23 19:03 Hydromorphone 2 Mg Tablet PO 2 mg Q6HR PRN Administration Severe Pain (Level 7-10) Hydroxyzine Pamoate 25 mg 09/23/23 12:53 09/23/23 13:07 Hydroxyzine Pamoate 25 Mg Capsule PO 25 mg TID PRN Administration Anxiety Acetaminophen 1,000 mg in 100 mls @ 400 mls/hr 09/22/23 17:25 09/23/23 00:35 Acetaminophen IV Infused Q6HR PRN Infusion Moderate Pain (Level 4-6) Metronidazole 500 mg in 100 mls @ 100 mls/hr 09/23/23 11:00 09/24/23 12:18 Flagyl 500 Mg/100 Ml IV Infused Q8H ALISON Infusion Levofloxacin 750 mg in 150 mls @ 100 mls/hr 09/24/23 09:00 09/24/23 10:31 Levaquin 750 Mg/150 Ml IV Infused Q24H ALISON Infusion Lactobacillus Rhamnosus 1 cap 09/24/23 09:00 09/24/23 08:17 Lactobacillus Rhamnosus Gg Capsule PO 1 cap DAILY ALISON Administration Multivitamins/Minerals 1 tab 09/23/23 17:00 09/24/23 08:17 Multivitamin W/Minerals Tablet PO 1 tab DAILYWM ALISON Administration Ondansetron HCl 4 mg 09/22/23 16:20 09/23/23 04:13 Ondansetron 4 Mg/2 Ml Vial IVP 4 mg Q6HR PRN Administration Nausea / Vomiting Sodium Chloride 10 ml 09/22/23 17:00 09/24/23 08:18 Sodium Chloride Flush 0.9% 10 Ml Syringe IVP 10 ml 0100,0900,1700 ALISON Administration Trazodone HCl 50 mg 09/23/23 20:46 09/23/23 21:32 Trazodone 50 Mg Tablet PO 50 mg QPM PRN Administration Insomnia Triamcinolone Acetonide 1 applic 09/23/23 18:00 09/24/23 08:17 Triamcinolone 0.5% Cream 15 Gm Tube TOP 1 applic BID ALISON Administration - Lab Result Fish Bone Diagrams: 09/24/23 05:34 09/24/23 05:34 - Additional Planning My Orders: My Active Orders 09/24/23 17:00 Cholecalciferol [Vitamin D3] 50 mcg PO DAILY Subjective - Subjective Patient Reports: Pain (Has severe pleuritic pain in the Right lateral chest) Objective Vital Signs: Vital Signs - 24 hr 09/24/23 09/24/23 09/24/23 00:21 07:28 15:54 Temperature 36.7 C 36.6 C 37.1 C Heart Rate [ 68 56 L 65 Brachial] Respiratory 16 16 16 Rate Blood Pressure 121/82 H 111/80 129/79 [Right Brachial artery] O2 Saturation 95 96 95 Oxygen O2 Source Room air I&O (Last 24 Hrs): Intake and Output Totals x24h 09/22/23 09/23/23 09/24/23 23:59 23:59 23:59 Intake Total 1210 2214 1520 Output Total 250 Balance 960 2214 1520 General: Alert, No acute distress HEENT: EOMI, Mucous membr. moist/pink, Other (Flushed cheeks) Neck: Supple, No JVD Neuro: Alert, Non Focal Cardiovascular: Regular rate, No murmurs Respiratory: Rhonchi (Right lateral base. He is splinting.) Abdomen: Normal bowel sounds, Soft Extremities: No clubbing, No edema, No tenderness/swelling - Results Results: Laboratory Results WBC 10.8 x10^3/uL (4.8-10.8) 09/24/23 05:34 RBC 4.57 10^6/uL (4.70-6.10) L 09/24/23 05:34 Hgb 12.9 g/dL (14.0-18.0) L 09/24/23 05:34 Hct 38.6 % (42.0-52.0) L 09/24/23 05:34 MCV 84.5 fL (80.0-94.0) 09/24/23 05:34 MCH 28.2 pg (27.0-31.0) 09/24/23 05:34 MCHC 33.4 g/dL (32.0-36.0) 09/24/23 05:34 RDW 13.7 % (12.0-15.0) 09/24/23 05:34 Plt Count 418 10^3/uL (130-450) 09/24/23 05:34 MPV 9.4 fL (7.4-11.4) 09/24/23 05:34 Neut # (Auto) Not Reportable 09/24/23 05:34 Lymph # (Auto) Not Reportable 09/24/23 05:34 Heard # (Auto) Not Reportable 09/24/23 05:34 Eos # (Auto) Not Reportable 09/24/23 05:34 Baso # (Auto) Not Reportable 09/24/23 05:34 Absolute Nucleated RBC Not Reportable 09/24/23 05:34 Total Counted 100 09/24/23 05:34 Band Neuts % (Manual) 9 % (0-10) 09/24/23 05:34 Reactive Lymphs % (Man) 12 % 09/22/23 16:01 Abnorm Lymph % (Manual) 0 % 09/24/23 05:34 Metamyelocytes % 1 % (-0) H 09/23/23 05:16 Nucleated RBC % Not Reportable 09/24/23 05:34 Neutrophils # (Manual) 9.4 10^3/uL (1.5-6.6) H 09/24/23 05:34 Lymphocytes # (Manual) 1.1 10^3/uL (1.5-3.5) L 09/24/23 05:34 Monocytes # (Manual) 0.1 10^3/uL (0.0-1.0) 09/24/23 05:34 Eosinophils # (Manual) 0.2 10^3/uL (0-0.7) 09/24/23 05:34 Basophils # (Manual) 0.0 10^3/uL (0-0.1) 09/24/23 05:34 Differential Comment MANUAL DIFFERENTIAL 09/24/23 05:34 Manual Slide Review Indicated 09/23/23 05:16 WBC Morphology 3+ TOXIC GRANULATION (NORMAL) 09/22/23 16:01 Platelet Estimate NORMAL (130-450,000) (NORMAL) 09/24/23 05:34 Platelet Morphology NORMAL APPEARANCE (NORMAL) 09/23/23 05:16 RBC Morph Micro Appear NORMAL APPEARANCE (NORMAL) 09/24/23 05:34 Sodium 140 mmol/L (135-145) 09/24/23 05:34 Potassium 4.4 mmol/L (3.5-4.5) 09/24/23 05:34 Chloride 104 mmol/L (101-111) 09/24/23 05:34 Carbon Dioxide 30 mmol/L (21-32) 09/24/23 05:34 Anion Gap 6.0 (6-13) 09/24/23 05:34 BUN 9 mg/dL (6-20) 09/24/23 05:34 Creatinine 0.6 mg/dL (0.6-1.3) 09/24/23 05:34 Estimated GFR (MDRD) 139 (>89) 09/24/23 05:34 Glucose 115 mg/dL (74-104) H 09/24/23 05:34 Lactic Acid 1.1 mmol/L (0.5-2.2) 09/22/23 16:01 Calcium 9.2 mg/dL (8.5-10.3) 09/24/23 05:34 Total Bilirubin 0.4 mg/dL (0.2-1.0) 09/22/23 16:01 AST 15 IU/L (10-42) 09/22/23 16:01 ALT 15 IU/L (10-60) 09/22/23 16:01 Alkaline Phosphatase 162 IU/L (42-121) H 09/22/23 16:01 C-Reactive Protein 25.7 mg/dL (<0.5) H 09/23/23 05:16 Total Protein 7.0 g/dL (6.4-8.9) 09/22/23 16:01 Albumin 3.2 g/dL (3.2-5.5) 09/22/23 16:01 Globulin 3.8 g/dL (2.1-4.2) 09/22/23 16:01 Albumin/Globulin Ratio 0.8 (1.0-2.2) L 09/22/23 16:01 Vitamin D 25-Hydroxy 22.8 ng/mL (30.0-100.0) L 09/23/23 14:09 Urine Color YELLOW 09/22/23 18:20 Urine Clarity CLEAR (CLEAR) 09/22/23 18:20 Urine pH 6.5 PH (5.0-7.5) 09/22/23 18:20 Ur Specific [place] 1.010 (1.002-1.030) 09/22/23 18:20 Urine Protein TRACE mg/dL (NEGATIVE) 09/22/23 18:20 Urine Glucose (UA) NEGATIVE mg/dL (NEGATIVE) 09/22/23 18:20 Urine Ketones NEGATIVE mg/dL (NEGATIVE) 09/22/23 18:20 Urine Occult Blood NEGATIVE (NEGATIVE) 09/22/23 18:20 Urine Nitrite NEGATIVE (NEGATIVE) 09/22/23 18:20 Urine Bilirubin NEGATIVE (NEGATIVE) 09/22/23 18:20 Urine Urobilinogen 2 E.U./dL (NORMAL) H 09/22/23 18:20 Ur Leukocyte Esterase NEGATIVE (NEGATIVE) 09/22/23 18:20 Urine RBC 0-5 /HPF (0-5) 09/22/23 18:20 Urine WBC 0-3 /HPF (0-3) 09/22/23 18:20 Ur Squamous Epith Cells NONE SEEN (<= Few) 09/22/23 18:20 Urine Bacteria Rare /HPF (None Seen) 09/22/23 18:20 Urine Culture Comments NOT INDICATED 09/22/23 18:20 Urine Opiates Screen NEGATIVE (NEGATIVE) 09/22/23 18:20 Ur Oxycodone Screen POSITIVE (NEGATIVE) H 09/22/23 18:20 Urine Methadone Screen NEGATIVE (NEGATIVE) 09/22/23 18:20 Ur Propoxyphene Screen NEGATIVE (NEGATIVE) 09/22/23 18:20 Ur Barbiturates Screen NEGATIVE (NEGATIVE) 09/22/23 18:20 Ur Tricyclics Screen NEGATIVE (NEGATIVE) 09/22/23 18:20 Ur Phencyclidine Scrn NEGATIVE (NEGATIVE) 09/22/23 18:20 Ur Amphetamine Screen NEGATIVE (NEGATIVE) 09/22/23 18:20 U Methamphetamines Scrn NEGATIVE (NEGATIVE) 09/22/23 18:20 U Benzodiazepines Scrn NEGATIVE (NEGATIVE) 09/22/23 18:20 Urine Cocaine Screen NEGATIVE (NEGATIVE) 09/22/23 18:20 U Cannabinoids Screen POSITIVE (NEGATIVE) H 09/22/23 18:20 HIV 1&2 Ab/P24 Ag 4thGn Non Reactive (Non Reactive) 09/22/23 16:05 - Procedures Procedures: Procedures EXCISION OF HEMORRHOIDAL PLEXUS, OPEN APPROACH (07/20/16) EXCISION OF HEMORRHOIDAL PLEXUS, PERCUTANEOUS APPROACH (05/29/23) EXCISION OF SIGMOID COLON, ENDO, DIAGN (05/29/23) SUPPLEMENT R FEMORAL REGION WITH SYNTH SUB, OPEN APPROACH (11/09/19) Sepsis Event Note (H) - Evaluation Current Stage of Sepsis: Ruled out
[2023-09-24] MEDS ORDERED: oxyCODONE/ACET 5/325 Prepack 4 PO PRN (18:34)
[2023-09-24] MEDS ORDERED: guaiFENesin/DEXTROMETHORPHAN 10 ML UDC PO PRN (18:36)
[2023-09-24] MEDS ORDERED: IBUPROFEN 400 MG TABLET PO PRN (18:37)
[2023-09-24] MEDS ORDERED: oxyCODONE 5 MG TABLET PO PRN (19:16)
[2023-09-24] MEDS: traZODone 50 MG TABLET PO PRN (21:39)
[2023-09-24] MEDS: guaiFENesin 600 MG TABLET PO SCH (21:42)
[2023-09-25 05:11] LABS: BASOPHILS % (AUTO) 0.7 %; EOSINOPHILS % (AUTO) 0.8 %; HCT - HEMATOCRIT 41.5 % (42.0-52.0); HGB - HEMOGLOBIN 13.6 g/dL (14.0-18.0); LYMPHOCYTES % (AUTO) 21.5 %; MEAN CORPUSCULAR HEMOGLOBIN 27.8 pg (27.0-31.0); MEAN CORPUSCULAR HGB CONC 32.8 g/dL (32.0-36.0); MEAN CORPUSCULAR VOLUME 84.9 fL (80.0-94.0); MEAN PLATELET VOLUME 8.9 fL (7.4-11.4); MONOCYTES % (AUTO) 4.7 %; NEUTROPHILS % (AUTO) 66.4 %; PLT - PLATELET COUNT 492 10^3/uL (130-450); RED BLOOD COUNT 4.89 10^6/uL (4.70-6.10); RED CELL DISTRIBUTION WIDTH 14.2 % (12.0-15.0); WHITE BLOOD COUNT 11.8 x10^3/uL (4.8-10.8)
[2023-09-25 05:26] LABS: CALCIUM 8.8 mg/dL (8.5-10.3); CREATININE 0.7 mg/dL (0.6-1.3); POTASSIUM 4.6 mmol/L (3.5-4.5)
[2023-09-25 05:31] LABS: ABNORMAL LYMPHS % (MANUAL) 0 %
[2023-09-25 06:31] LABS: BAND NEUTROPHILS % (MANUAL) 5 %; DIFFERENTIAL COMMENT MANUAL DIFFERENTIAL; LYMPHOCYTES # (MANUAL) 3.4 10^3/uL (1.5-3.5); LYMPHOCYTES % (MANUAL) 29 %; METAMYELOCYTES % (MANUAL) 1 %; MONOCYTES # (MANUAL) 0.7 10^3/uL (0.0-1.0); MYELOCYTES % (MANUAL) 1 %; NEUTROPHILS # (MANUAL) 7.4 10^3/uL (1.5-6.6); PLATELET ESTIMATE, MANUAL INCREASED (>450,000) (NORMAL); RBC MORPHOLOGY (MULTIPLE) NORMAL APPEARANCE (NORMAL)
[2023-09-25 07:33] VITALS: BP 113/73; O2SAT 93
[2023-09-25] MEDS: ACETAMINOPHEN 325 MG TABLET PO PRN (08:03)
[2023-09-25] MEDS: metroNIDAZOLE 250 MG TABLET PO SCH ×2 (08:04→11:58)
[2023-09-25] MEDS: MULTIVITAMIN W/MINERALS TABLET PO SCH (08:04)
[2023-09-25] MEDS: LACTOBACILLUS RHAMNOSUS GG CAPSULE PO SCH (08:04)
[2023-09-25] MEDS: ENOXAPARIN 40 MG/0.4 ML SYRINGE SUBQ SCH (08:05)
[2023-09-25] MEDS: CHOLECALCIFEROL 25 MCG TABLET PO SCH (08:05)
[2023-09-25] MEDS: guaiFENesin 600 MG TABLET PO SCH (08:05)
[2023-09-25] MEDS: TRIAMCINOLONE 0.5% CREAM 15 GM TUBE TOP SCH (08:06)
[2023-09-25] MEDS: SODIUM CHLORIDE FLUSH 0.9% 10 ML SYRINGE IVP SCH (08:06)
[2023-09-25] MEDS ORDERED: levoFLOXacin 250 MG TABLET PO SCH (09:00)
--- NOTE | 2023-09-25 09:01 | Discharge Plan ---
Discharge Plan Problem Reviewed?: Yes Disposition: Home, Self Care Condition: Fair Prescriptions: Lactobacillus Rhamnosus GG [Culturelle] 1 cap PO DAILY #12 cap metroNIDAZOLE [Flagyl] 500 mg PO TIDWM #9 tab levoFLOXacin [Levaquin] 750 mg PO DAILY #12 tab guaiFENesin [Mucinex] 600 mg PO BID #14 tab Oxycodone HCl/Acetaminophen [Percocet 5-325 mg Tablet] 1 each PO Q6H PRN #6 tablet PRN Reason: Severe Pain (Level 7-10) Cholecalciferol [Vitamin D3] 50 mcg PO DAILY #7 tab Diet: Regular Activity Restrictions: Activity as Tolerated Shower Restrictions: No Driving Restrictions: No Weight Bearing: Full Weight Instruction Topics: Pneumonia Health Concerns: You were hospitalized to manage a bacterial infection in your bloodstream and the source was a severe pneumonia. The blood culture test identified the bacteria, and you are being discharged home to take an oral antibiotic for treatment of both the pneumonia and the bacteria in the bloodstream. The course of treatment is a total of 14 days, so 12 more days of oral antibiotic are needed. You are also being prescribed a probiotic pill to help prevent diarrhea, while you are on the antibiotic. A prescription for Mucinex, to help cough up the phlegm and open up the airway in the lower lung, has also been prescribed for you. Several tablets of narcotic for pain control have been prescribed. Please use the Incentive Spirometer, which will help open up the lower airways also. In addition, you had abdominal symptoms and testing showed that you also had diverticulitis. For this you are on Flagyl antibiotic. The treatment for the diverticulitis will finish in 3 more days. A prescription for Flagyl to take for that period of time has also been electronically prescribed. You may resume taking any pre-hospital medications that you were on. The new prescriptions were electronically sent to your [facility] pharmacy in [place]. Plan of Treatment: As above. Care Goals: Improvement in symptoms and stabilization are the goals. Assessment: The patient understands and is agreeable with the plan. Additional Instructions or Follow Up instructions: You should see your primary care provider in the next 1 to 2 weeks for hospital follow-up visit. If you get new or worsening symptoms, call your PCP for advice, or come to the ER. No Smoking: If you smoke, Please STOP! Call for help. Follow-up with: Mariah Braswell ARNP [Primary Care Provider] -
--- NOTE | 2023-09-25 12:12 | DISCHARGE SUMMARY ---
Discharge Summary Admit Date: 09/22/23 Discharge Date: 09/25/23 Discharging Provider: Dr Karo Edouard Primary Care Provider: SADI Braswell Condition at Discharge: Fair Discharge Disposition: Home, Self Care - HPI History of Present Illness: A 58 years old male with no chronic medical history, history of smoking, denies current use of tobacco, alcohol or illicit drugs. Presented to the ED initially yesterday on 09/21/2023 for cough, chest pain, shortness of breath for 4 days. Was diagnosed with right upper lobe pneumonia,And uncomplicated diverticulitis, Received IV antibiotics and fluids in the ED, vitals and labs does not meet criteria for hospitalization. He was sent home with Augmentin and doxycycline. Patient Was called back in due to positive blood cultures shows gram-positive cocci in chains. Patient reports he slipped in his bathtub on Saturday, hurt his ribs, he felt so painful, went to see his chiropractor, he was advised to use ice for his pain. He noticed that he cannot have strong cough due to the pain started to feel shortness of breath. In the next couple of days, his rib pain got better, was able to cough, and noted he coughed out thick brown sputum, which he took a picture and showed to me. It appears to be thick purulent, no blood tingeing. Patient felt he was worsening therefore ask his friend to bring him to the ED yesterday Saturday. He also reported a lot of nausea, he even could not brush his teeth. Last night he had a chills. Today in the morning he took the first dose of antibiotics he was prescribed, finally he was able to brush his teeth without feeling nausea. In the ED, patient is afebrile, vitals were within normal limits. Labs show normal WBC. Normal lactic acid level,Mild elevated ALP 160, and glucose 150. Patient was given IV ceftriaxone 2 g, and a dose of Zithromax in the ED. Patient is admitted for further treatment of pneumonia. - HOSPITAL COURSE Hospital Course: (1) Pneumonia: J13 - Pneumonia due to Streptococcus pneumoniae The sputum culture identified Streptococcus pneumoniae. He was on empiric antibiotics, Mucinex and needed narcotics for managing severe R-sided pleuritic chest pain. (2) Bacteremia due to Streptococcus pneumoniae Blood culture identified Strep pneumo which was pansensitive. The CRP was downtrending. Echo was neg for vegetations. HIV ordered for screening for any potential immunocompromised condition and was still pending at the time of discharge. A repeat blood culture on antibiotics was negative, thus he was discharged to complete a total 14-day course antibiotics. Due to drug rash (see #4), we discontinued the iv Ceftriaxone and started patient on iv Levofloxacin. Since he had no endocarditis, and since the strep pneumoniae is pansensitive, and since Levofloxacin has a good bioavailability when given orally, he was discharged home on p.o. Levofloxacin to take for 12 more days. (3) Diverticulitis of gastrointestinal tract Abdominal pain improved after oral Flagyl was added. He was dsicharged to complete a 5-day total course with this (4) Drug rash On 09/23, patient developed red itchy rash, started on chest and then on his back and spread down to the upper legs. Likely was due to ceftriaxone, so we stopped ceftriaxone, gave Benadryl, Solu-Medrol 40 mg once, topical high intensity steroid. (5) Vitamin D deficiency As per labs. Vit D suppl ordered. - ALLERGIES Allergies/Adverse Reactions: Allergies Allergy/AdvReac Type Severity Reaction Status Date / Time ceftriaxone Allergy Intermediate Rash Verified 09/23/23 19:38 Opioids - Morphine Analogues AdvReac Itching Verified 09/22/23 15:43 - MEDICATIONS Home Medications: Ambulatory Orders Medication Instructions Recorded Confirmed Acetaminophen [Tylenol] 1,000 mg PO Q6H PRN 09/23/23 09/23/23 Ibuprofen [Advil] 400 mg PO Q8H PRN 09/23/23 09/23/23 Neomycin [place]/Bacitrac Zn/Poly 1 applic TOP DAILY PRN 09/23/23 09/23/23 [Neosporin Ointment] Cholecalciferol [Vitamin D3] 50 mcg PO DAILY #7 tab 09/25/23 Lactobacillus Rhamnosus GG 1 cap PO DAILY #12 cap 09/25/23 [Culturelle] Oxycodone HCl/Acetaminophen 1 each PO Q6H PRN #6 tablet 09/25/23 [Percocet 5-325 mg Tablet] Triamcinolone 0.5% Cream [Kenalog 1 applic TOP BID each 09/25/23 0.5% Cream] guaiFENesin [Mucinex] 600 mg PO BID #14 tab 09/25/23 levoFLOXacin [Levaquin] 750 mg PO DAILY #12 tab 09/25/23 metroNIDAZOLE [Flagyl] 500 mg PO TIDWM #9 tab 09/25/23 - PHYSICAL EXAM AT DISCHARGE General Appearance: positive: Mild distress (from R-sided pleuritic CP, he is splinting) Eyes Bilateral: positive: Normal inspection, EOMI ENT: positive: ENT inspection nml, No signs of dehydration Neck: positive: Nml inspection, No JVD Respiratory: positive: Rhonchi (R base) Cardiovascular: positive: Regular rate & rhythm, No murmur Abdomen: positive: Non-tender, Nml bowel sounds, No distention Skin: positive: Warm, Dry Extremities: positive: Non-tender, No pedal edema Neurologic/Psychiatric: positive: Oriented x3, Motor nml - LABS Result Diagrams: 09/25/23 04:53 09/25/23 04:53 - SEPSIS Current Stage of Sepsis: Ruled out - FOLLOW UP Follow Up: See PCP in 1-2 weeks for a hospital F/U visit. - TIME SPENT Time Spent in Discharge (Minutes): 45
== END 2023-09-25 12:40 | disposition home or self-care (01) | DRG 194 ==
LOC: ED 15:33 → MS2 16:20
PROVIDERS: ADMIT Internal Medicine; ATTEND Internal Medicine
DX: J13 Pneumonia due to Streptococcus pneumoniae (principal); K57.32 Diverticulitis of large intestine without perforation or abscess without bleeding; L27.0 Generalized skin eruption due to drugs and medicaments taken internally; T36.1X5A Adverse effect of cephalosporins and other beta-lactam antibiotics, initial encounter; Y92.230 Patient room in hospital as the place of occurrence of the external cause; E55.9 Vitamin D deficiency, unspecified
CPT/HCPCS: 36415; 71045; 80048; 80053; 80306; 81001; 82306; 83605; 85025; 86140; 87040; 87389; 93306; 99285; A9270; J0131; J1170; J1200; Q0162; 86703; 87086